=== PATIENT | female | born 1940 | race Caucasian/White ===

== ENCOUNTER 2016-07-03 17:32 | Inpatient (IN) | payer MEDICARE, OTHER ==
[2016-07-03] MEDS ORDERED: IPRATROPIUM/ALBUTEROL 3 ML NEB INH STA (17:58)
[2016-07-03] MEDS ORDERED: IPRATROPIUM/ALBUTEROL 3 ML NEB INH ONE (18:08)
[2016-07-03] MEDS ORDERED: AZITHROMYCIN INJ 500 MG in SODIUM CHLORIDE 0.9% 250 ML IV STA (18:36)
[2016-07-03] MEDS ORDERED: cefTRIAXone 1 GM in SODIUM CHLORIDE 0.9% MINIBAG 100 ML IV STA (18:36)
[2016-07-03] MEDS ORDERED: cefTRIAXone 1 GM VIAL ONE ×2 (18:43→19:06)
[2016-07-03] MEDS ORDERED: SODIUM CHLORIDE FLUSH 0.9% 10 ML SYRINGE IVP PRN (19:48)
[2016-07-03] MEDS ORDERED: LEVALBUTEROL 1.25 MG INH PRN (19:48)
[2016-07-03] MEDS ORDERED: ONDANSETRON 4 MG/2 ML VIAL IVP PRN (19:48)
[2016-07-03] MEDS: SODIUM CHLORIDE FLUSH 0.9% 10 ML SYRINGE IVP SCH (19:58)
[2016-07-03] MEDS ORDERED: NON FORMULARY MED (Lovastatin [Lovastatin] 40 MG) PO SCH (21:00)
[2016-07-03] MEDS: SODIUM CHLORIDE 0.9% 1,000 ML IV SCH (22:38)
[2016-07-04] MEDS: ACETAMINOPHEN 325 MG TABLET PO PRN ×3 (00:30→12:09)
[2016-07-04] MEDS: BENZOCAINE/MENTHOL LOZENGE MM PRN ×2 (04:04→07:07)
[2016-07-04] MEDS: guaiFENesin/CODEINE 5 ML UDC PO PRN ×3 (04:53→16:29)
[2016-07-04] MEDS: LEVOTHYROXINE 88 MCG TABLET PO SCH (07:08)
[2016-07-04] MEDS: BENZONATATE 100 MG CAPSULE PO PRN ×2 (08:11→22:02)
[2016-07-04] MEDS: SODIUM CHLORIDE FLUSH 0.9% 10 ML SYRINGE IVP SCH ×3 (08:12→22:02)
[2016-07-04] MEDS: SACCHAROMYCES BOULARDII 250 MG CAPSULE PO SCH ×2 (08:25→16:29)
[2016-07-04] MEDS: ASPIRIN EC 81 MG TABLET PO SCH (08:25)
[2016-07-04] MEDS: SODIUM CHLORIDE 0.9% 1,000 ML IV SCH (08:32)
[2016-07-04] MEDS: cefTRIAXone 2 GM in SODIUM CHLORIDE 0.9% MINIBAG 100 ML IV SCH (08:40)
[2016-07-04] MEDS: ENOXAPARIN 40 MG/0.4 ML SYRINGE SUBQ SCH (08:40)
[2016-07-04] MEDS: POLYETHYLENE GLYCOL 3350 17 GM PACKET PO SCH (08:41)
[2016-07-04] MEDS: AZITHROMYCIN INJ 500 MG in SODIUM CHLORIDE 0.9% 250 ML IV SCH (09:28)
[2016-07-04] MEDS: NICOTINE 14 MG PATCH TOP SCH (19:20)
[2016-07-04] MEDS: ATORVASTATIN 10 MG TABLET PO SCH (22:02)
[2016-07-05] MEDS: guaiFENesin/CODEINE 5 ML UDC PO PRN ×2 (00:43→17:48)
[2016-07-05] MEDS: OSELTAMIVIR 75 MG CAPSULE PO SCH ×3 (00:43→21:54)
[2016-07-05] MEDS: SODIUM CHLORIDE FLUSH 0.9% 10 ML SYRINGE IVP SCH ×3 (05:06→21:55)
[2016-07-05] MEDS: ACETAMINOPHEN 325 MG TABLET PO PRN ×2 (05:06→15:54)
[2016-07-05] MEDS: BENZONATATE 100 MG CAPSULE PO PRN ×2 (05:06→15:53)
[2016-07-05] MEDS: LEVOTHYROXINE 88 MCG TABLET PO SCH (06:11)
[2016-07-05] MEDS: SACCHAROMYCES BOULARDII 250 MG CAPSULE PO SCH ×2 (08:28→16:23)
[2016-07-05] MEDS: ASPIRIN EC 81 MG TABLET PO SCH (08:29)
[2016-07-05] MEDS: NICOTINE 14 MG PATCH TOP SCH (08:29)
[2016-07-05] MEDS: cefTRIAXone 2 GM in SODIUM CHLORIDE 0.9% MINIBAG 100 ML IV SCH (08:32)
[2016-07-05] MEDS: ENOXAPARIN 40 MG/0.4 ML SYRINGE SUBQ SCH (08:37)
[2016-07-05] MEDS: AZITHROMYCIN INJ 500 MG in SODIUM CHLORIDE 0.9% 250 ML IV SCH (10:12)
[2016-07-05] MEDS: POLYETHYLENE GLYCOL 3350 17 GM PACKET PO SCH (10:13)
[2016-07-05] MEDS ORDERED: LOPERAMIDE 2 MG CAPSULE PO PRN (15:55)
[2016-07-05] MEDS: IPRATROPIUM/ALBUTEROL 3 ML NEB INH PRN (20:10)
[2016-07-05] MEDS: ATORVASTATIN 10 MG TABLET PO SCH (21:54)
[2016-07-06] MEDS: ACETAMINOPHEN 325 MG TABLET PO PRN (04:24)
[2016-07-06] MEDS: CEPHALEXIN 250 MG CAPSULE PO SCH ×3 (06:46→21:15)
[2016-07-06] MEDS: SODIUM CHLORIDE FLUSH 0.9% 10 ML SYRINGE IVP SCH ×3 (06:46→21:15)
[2016-07-06] MEDS: LEVOTHYROXINE 88 MCG TABLET PO SCH (06:46)
[2016-07-06] MEDS: NICOTINE 14 MG PATCH TOP SCH (08:01)
[2016-07-06] MEDS: ASPIRIN EC 81 MG TABLET PO SCH (08:01)
[2016-07-06] MEDS: ENOXAPARIN 40 MG/0.4 ML SYRINGE SUBQ SCH (08:01)
[2016-07-06] MEDS: SACCHAROMYCES BOULARDII 250 MG CAPSULE PO SCH ×2 (08:01→16:55)
[2016-07-06] MEDS: POLYETHYLENE GLYCOL 3350 17 GM PACKET PO SCH (08:02)
[2016-07-06] MEDS: OSELTAMIVIR 75 MG CAPSULE PO SCH ×2 (08:02→21:14)
[2016-07-06] MEDS: guaiFENesin/CODEINE 5 ML UDC PO PRN ×3 (08:02→21:15)
[2016-07-06] MEDS: IPRATROPIUM/ALBUTEROL 3 ML NEB INH PRN (10:35)
[2016-07-06] MEDS: ATORVASTATIN 10 MG TABLET PO SCH (21:15)
[2016-07-07] MEDS: CEPHALEXIN 250 MG CAPSULE PO SCH ×3 (06:53→21:13)
[2016-07-07] MEDS: LEVOTHYROXINE 88 MCG TABLET PO SCH (06:53)
[2016-07-07] MEDS: SODIUM CHLORIDE FLUSH 0.9% 10 ML SYRINGE IVP SCH ×3 (06:53→21:21)
[2016-07-07] MEDS: SACCHAROMYCES BOULARDII 250 MG CAPSULE PO SCH ×2 (09:15→17:45)
[2016-07-07] MEDS: ENOXAPARIN 40 MG/0.4 ML SYRINGE SUBQ SCH (09:15)
[2016-07-07] MEDS: ASPIRIN EC 81 MG TABLET PO SCH (09:15)
[2016-07-07] MEDS: NICOTINE 14 MG PATCH TOP SCH (09:15)
[2016-07-07] MEDS: POLYETHYLENE GLYCOL 3350 17 GM PACKET PO SCH (09:17)
[2016-07-07] MEDS: OSELTAMIVIR 75 MG CAPSULE PO SCH ×2 (09:17→21:13)
[2016-07-07] MEDS: BENZONATATE 100 MG CAPSULE PO PRN (09:28)
[2016-07-07] MEDS: guaiFENesin/CODEINE 5 ML UDC PO PRN (09:29)
[2016-07-07] MEDS: IPRATROPIUM/ALBUTEROL 3 ML NEB INH PRN (10:15)
[2016-07-07] MEDS: methylPREDNISolone SUCCINATE 40 MG/ML VIAL IVP SCH ×2 (13:58→21:12)
[2016-07-07] MEDS ORDERED: SODIUM CHLORIDE INHALATION 3 ML NEB ONE (14:02)
[2016-07-07] MEDS: LEVALBUTEROL 1.25 MG INH SCH ×2 (14:05→22:40)
[2016-07-07] MEDS: BUDESONIDE 0.5 MG/2 ML NEB INH SCH ×2 (14:06→19:10)
[2016-07-07] MEDS: FORMOTEROL FUMARATE NEB 20 MCG/2 ML INH SCH ×2 (14:06→19:10)
[2016-07-07] MEDS: ATORVASTATIN 10 MG TABLET PO SCH (21:13)
[2016-07-07] MEDS: SODIUM CHLORIDE INHALATION 3 ML NEB ONE ×2 (21:14→22:40)
[2016-07-08] MEDS: SODIUM CHLORIDE FLUSH 0.9% 10 ML SYRINGE IVP SCH ×2 (06:09→13:25)
[2016-07-08] MEDS: LEVOTHYROXINE 88 MCG TABLET PO SCH (06:09)
[2016-07-08] MEDS: CEPHALEXIN 250 MG CAPSULE PO SCH ×2 (06:09→13:22)
[2016-07-08] MEDS: methylPREDNISolone SUCCINATE 40 MG/ML VIAL IVP SCH ×2 (06:09→13:24)
[2016-07-08] MEDS: BUDESONIDE 0.5 MG/2 ML NEB INH SCH (07:45)
[2016-07-08] MEDS: FORMOTEROL FUMARATE NEB 20 MCG/2 ML INH SCH (07:45)
[2016-07-08] MEDS: LEVALBUTEROL 1.25 MG INH SCH ×2 (07:45→11:30)
[2016-07-08] MEDS: SACCHAROMYCES BOULARDII 250 MG CAPSULE PO SCH (08:16)
[2016-07-08] MEDS: ASPIRIN EC 81 MG TABLET PO SCH (08:17)
[2016-07-08] MEDS: ENOXAPARIN 40 MG/0.4 ML SYRINGE SUBQ SCH (08:17)
[2016-07-08] MEDS: OSELTAMIVIR 75 MG CAPSULE PO SCH (08:17)
[2016-07-08] MEDS: NICOTINE 14 MG PATCH TOP SCH (08:17)
[2016-07-08] MEDS: BENZONATATE 100 MG CAPSULE PO PRN (08:18)
[2016-07-08] MEDS: guaiFENesin/CODEINE 5 ML UDC PO PRN (08:18)
[2016-07-08] MEDS: POLYETHYLENE GLYCOL 3350 17 GM PACKET PO SCH (09:44)
[2016-07-08] MEDS ORDERED: SODIUM CHLORIDE INHALATION 3 ML NEB ONE ×2 (11:32→14:50)
[2016-07-08] MEDS: IPRATROPIUM/ALBUTEROL 3 ML NEB INH PRN (13:44)
== END 2016-07-08 15:24 | disposition home or self-care (01) | DRG 189 ==
DX: J96.01 Acute respiratory failure with hypoxia (principal); J18.9 Pneumonia, unspecified organism; E78.00 Pure hypercholesterolemia, unspecified; G47.30 Sleep apnea, unspecified; M19.90 Unspecified osteoarthritis, unspecified site; F17.200 Nicotine dependence, unspecified, uncomplicated; R09.02 Hypoxemia; J10.08 Influenza due to other identified influenza virus with other specified pneumonia; J18.1 Lobar pneumonia, unspecified organism; N39.0 Urinary tract infection, site not specified; F17.210 Nicotine dependence, cigarettes, uncomplicated; G47.33 Obstructive sleep apnea (adult) (pediatric); E78.5 Hyperlipidemia, unspecified; E03.9 Hypothyroidism, unspecified; J84.10 Pulmonary fibrosis, unspecified; R91.8 Other nonspecific abnormal finding of lung field; R59.0 Localized enlarged lymph nodes; B96.20 Unspecified Escherichia coli [E. coli] as the cause of diseases classified elsewhere; R19.7 Diarrhea, unspecified; Z79.82 Long term (current) use of aspirin; J43.8 Other emphysema; B33.8 Other specified viral diseases

== ENCOUNTER 2017-01-09 15:51 | Emergency (ER) | payer MEDICARE, OTHER ==
[2017-01-09] MEDS ORDERED: ASPIRIN CHEW 81 MG TABLET PO STA (16:48)
--- NOTE | 2017-01-09 16:50 | ED Physician Documentation ---
PD HPI CHEST PAIN - Stated complaint Stated Complaint: CHEST PX - Chief complaint Chief Complaint: Cardiac - History obtained from History obtained from: Patient, Family (76-year-old woman presents by private vehicle with her 2 daughters. She is a relatively recent diagnosis, about 7 months ago of small cell lung cancer, stage IV, being treated at the [facility]. She developed tight anterior chest pain at rest radiating to the right shoulder but not the back at 1 PM today which has gotten better but not gone away. There is no associated pedal edema or shortness of breath. She never had this before. No history of heart problems.) Review of Systems Ten Systems: 10 systems reviewed and negative Constitutional: denies: Fever, Chills Respiratory: denies: Dyspnea, Cough GI: denies: Abdominal Pain, Nausea, Vomiting PD PAST MEDICAL HISTORY - Past Medical History Cardiovascular: High cholesterol Respiratory: Sleep apnea, CPAP use Neuro: None Endocrine/Autoimmune: HyPOthyroidism GI: None : None HEENT: None Psych: None Musculoskeletal: Osteoarthritis Derm: None - Past Surgical History Past Surgical History: No General: Colonoscopy Ortho: Other - Present Medications Home Medications: Ambulatory Orders Medication Instructions Recorded Confirmed Aspirin [Aspir 81] 81 mg PO DAILY 05/23/14 07/03/16 Garlic 1,000 mg PO DAILY 05/23/14 07/04/16 Lovastatin 40 mg PO QPM 05/23/14 07/03/16 Calcium Carbonate/Vitamin D3 1 tab PO DAILY 07/04/16 07/04/16 [Calcium 600-Vit D3 400 Tablet] Levothyroxine Sodium 75 mcg PO DAILY 07/04/16 07/04/16 Vitamin B Complex 1 tab PO DAILY 07/04/16 07/04/16 Vitamin E (Dl,Tocopheryl Acet) 400 units PO DAILY 07/04/16 07/04/16 [Vitamin E] Acetaminophen [Tylenol] 650 mg PO Q4HR PRN #0 tablet 07/08/16 Budesonide [Pulmicort] 0.5 mg INH RTBID #60 neb 07/08/16 Levalbuterol [Xopenex] 1.25 mg INH TID #90 neb 07/08/16 Levofloxacin [Levaquin] 500 mg PO DAILY #5 tablet 07/08/16 Nicotine 14 mg Patch [Nicoderm] 1 patch TOP DAILY #10 patch 07/08/16 Prednisone 20 mg PO ONCE #5 tablet 07/08/16 Saccharomyces Boulardii [Florastor] 250 mg PO BID #20 capsule 07/08/16 - Allergies Allergies/Adverse Reactions: Allergies Allergy/AdvReac Type Severity Reaction Status Date / Time No Known Drug Allergies Allergy Verified 07/03/16 17:50 - Social History Does the pt smoke?: Yes Smoking Status: Current every day smoker Does the pt drink ETOH?: Yes Does the pt have substance abuse?: No - Immunizations Immunizations are current?: Yes PD ED PE NORMAL - Vitals Vital signs reviewed: Yes - General General: Alert and oriented X 3, No acute distress - HEENT HEENT: PERRL, EOMI - Neck Neck: Supple, no meningeal sign, No bony TTP - Cardiac Cardiac: RRR, No murmur, Strong equal pulses - Respiratory Respiratory: No respiratory distress, Clear bilaterally - Abdomen Abdomen: Non tender - Back Back: No CVA TTP, No spinal TTP - Derm Derm: Normal color, Warm and dry - Extremities Extremities: No edema, No calf tenderness / cord - Neuro Neuro: Alert and oriented X 3, Normal speech - Psych Psych: Normal mood, Normal affect Results - Vitals Vitals: Vital Signs - 24 hr 01/09/17 01/09/17 01/09/17 15:54 16:30 17:30 Temperature 36.1 C L Heart Rate 59 L 88 79 Respiratory 16 16 17 Rate Blood Pressure 175/90 H 144/66 H 149/88 H O2 Saturation 95 98 97 01/09/17 01/09/17 01/09/17 18:26 19:16 19:47 Temperature 36.2 C L Heart Rate 56 L 59 L 65 Respiratory 17 18 17 Rate Blood Pressure 161/90 H 158/72 H 158/72 H O2 Saturation 93 94 95 Oxygen O2 Source [] Room air O2 Source [] Room air O2 Source Room air - EKG (time done) 1605 Rate: Rate (enter#) (55) Rhythm: NSR [place]: RAD Intervals: Normal ME QRS: Normal Ischemia: Normal ST segments Computer interpretation: Agree with computer - Labs Labs: Laboratory Tests 01/09/17 01/09/17 01/09/17 16:54 16:54 16:54 WBC 8.2 RBC 4.26 Hgb 14.2 Hct 42.0 MCV 98.6 MCH 33.3 H MCHC 33.8 RDW 13.6 Plt Count 251 MPV 8.3 Neut # 4.7 Lymph # 2.3 [place] # 1.0 Eos # 0.1 Baso # 0.1 Absolute Nucleated RBC 0.00 Nucleated RBCs 0.0 D-Dimer Sodium 136 Potassium 4.3 Chloride 104 Carbon Dioxide 25 Anion Gap 7.0 BUN 22 H Creatinine 0.9 Estimated GFR (MDRD) 61 L Glucose 108 H Calcium 10.4 H Total Bilirubin 0.5 AST 48 H ALT 28 Alkaline Phosphatase 56 Troponin I 3.65 H* Total Protein 7.2 Albumin 4.0 Globulin 3.2 Albumin/Globulin Ratio 1.3 Lipase 21 L 01/09/17 16:54 WBC RBC Hgb Hct MCV MCH MCHC RDW Plt Count MPV Neut # Lymph # [place] # Eos # Baso # Absolute Nucleated RBC Nucleated RBCs D-Dimer < 200.0 L Sodium Potassium Chloride Carbon Dioxide Anion Gap BUN Creatinine Estimated GFR (MDRD) Glucose Calcium Total Bilirubin AST ALT Alkaline Phosphatase Troponin I Total Protein Albumin Globulin Albumin/Globulin Ratio Lipase - Rads (name of study) 1v chest Radiology: EMP read contemporaneously (COPD, no acute disease) PD MEDICAL DECISION MAKING - ED course ED course: 76-year-old woman with recent diagnosis of small cell lung cancer undergoing treatment presents with just a few hours of fairly typical chest pain but no EKG changes. Workup demonstrates a troponin well above the indeterminate range for TN, negative d-dimer. She was started on a heparin drip, she had received aspirin, beta blockers were held given borderline bradycardia. Spoke with , rodding anode worker the [facility] who also recommends Plavix, and spoke with the ICU attending at the [facility] who accepts in transfer. - Critical Care Time(min): 42 Time Includes: Direct patient care, Review records, Reassess patient, Document care, Coordinate care, Medical consult, Family consult for tx dec Data interpretation: Labs, Pulse ox, CXR Procedures excluded from critical care time: EKG Departure - Departure Disposition: 02 Transfer Acute Care Hosp Clinical Impression: Non-STEMI (non-ST elevated myocardial infarction) Condition: Serious Discharge Date/Time: 01/09/17 19:47
[2017-01-09 17:00] LABS: BASOPHILS # (AUTO) 0.1 10^3/uL (0.0-0.1); BASOPHILS % (AUTO) 0.9 %; EOSINOPHILS # (AUTO) 0.1 10^3/uL (0.0-0.7); EOSINOPHILS % (AUTO) 1.7 %; HGB - HEMOGLOBIN 14.2 g/dL (12.0-16.0); LYMPHOCYTES # (AUTO) 2.3 10^3/uL (1.5-3.5); LYMPHOCYTES % (AUTO) 27.9 %; MEAN CORPUSCULAR HEMOGLOBIN 33.3 pg (27.0-31.0); MEAN CORPUSCULAR HGB CONC 33.8 g/dL (32.0-36.0); MEAN CORPUSCULAR VOLUME 98.6 fL (81.0-99.0); MEAN PLATELET VOLUME 8.3 fL (7.9-10.8); MONOCYTES % (AUTO) 12.7 %; NEUTROPHILS # (AUTO) 4.7 10^3/uL (1.5-6.6); NEUTROPHILS % (AUTO) 56.8 %; RED BLOOD COUNT 4.26 10^6/uL (4.20-5.40); RED CELL DISTRIBUTION WIDTH 13.6 % (12.0-15.0); UNCORRECTED WHITE BLOOD COUNT 8.2 x10^3/uL; WHITE BLOOD COUNT 8.2 x10^3/uL (4.8-10.8)
[2017-01-09] MEDS ORDERED: ASPIRIN CHEW 81 MG TABLET ONE (17:03)
--- NOTE | 2017-01-09 17:03 | XRAY Preliminary Report ---
Exam: XR Chest 1 View IMPRESSION: 1. No radiographically apparent acute abnormality in the chest. No significant change from prior allo wing for differences in technique. 2. COPD. [facility] SITE ID: [id number]
--- NOTE | 2017-01-09 17:05 | XRAY Report ---
EXAM: CHEST RADIOGRAPHY EXAM DATE: 01/09/2017 04:43 PM. CLINICAL HISTORY: Chest pain. COMPARISON: 07/06/2016. TECHNIQUE: 1 view. FINDINGS: Lungs/Pleura: No focal opacities evident. No pleural effusion. No pneumothorax. Hyperinflation as bef ore. Mediastinum: Within exam limitations, cardiomediastinal contour is normal. Aortic atherosclerosis. Other: None. IMPRESSION: 1. No radiographically apparent acute abnormality in the chest. No significant change from prior allo wing for differences in technique. 2. COPD. [facility] Referring Provider Line: [phone] SITE ID: [id number]
[2017-01-09 17:12] LABS: ALBUMIN/GLOBULIN RATIO 1.3 (1.0-2.2); BILIRUBIN,TOTAL 0.5 mg/dL (0.2-1.0); CALCIUM 10.4 mg/dL (8.5-10.3); CREATININE 0.9 mg/dL (0.4-1.0); POTASSIUM 4.3 mmol/L (3.5-5.0); TOTAL PROTEIN 7.2 g/dL (6.7-8.2)
[2017-01-09] MEDS ORDERED: HEPARIN 5,000 UNIT/ML VIAL IVP ONE (17:24)
[2017-01-09] MEDS ORDERED: HEPARIN 25,000 UNITS/500 ML 500 ML IV STA (17:24)
[2017-01-09] MEDS ORDERED: NITROGLYCERIN 2% PASTE TOP STA (17:24)
[2017-01-09] MEDS ORDERED: HEPARIN 5,000 UNIT/ML VIAL ONE (17:32)
[2017-01-09] MEDS ORDERED: NITROGLYCERIN 2% PASTE TOP ONE (17:32)
[2017-01-09] MEDS ORDERED: HEPARIN 25,000 UNITS/500 ML 500 ML IV ONE (17:32)
[2017-01-09] MEDS ORDERED: CLOPIDOGREL 300 MG TABLET PO STA (17:47)
[2017-01-09] MEDS ORDERED: CLOPIDOGREL 300 MG TABLET PO ONE (17:54)
[2017-01-09 19:18] VITALS: BP 158/72
[2017-01-09] MEDS ORDERED: ACETAMINOPHEN 325 MG TABLET PO STA (19:32)
[2017-01-09] MEDS ORDERED: ACETAMINOPHEN 325 MG TABLET PO ONE (19:38)
== END 2017-01-09 19:47 | disposition short-term general hospital (02) ==
LOC: ED 15:51
DX: I21.4 Non-ST elevation (NSTEMI) myocardial infarction (principal); C34.90 Malignant neoplasm of unspecified part of unspecified bronchus or lung; E78.00 Pure hypercholesterolemia, unspecified; G47.30 Sleep apnea, unspecified; E03.9 Hypothyroidism, unspecified; M19.90 Unspecified osteoarthritis, unspecified site; Z79.82 Long term (current) use of aspirin; F17.200 Nicotine dependence, unspecified, uncomplicated
CPT/HCPCS: 36415; 71010; 80053; 83690; 84484; 85025; 85379; 93005; 96365; 96366; 96375; 99284; 99291; A9270

== ENCOUNTER 2017-01-09 19:52 | Outpatient (CLI) | payer MEDICARE, OTHER | END 2017-01-09 19:53 | disposition short-term general hospital (02) | LOC: EMS 19:52 | PROVIDERS: ATTEND Surgery | DX: R07.9 Chest pain, unspecified (principal) | CPT/HCPCS: A0170; A0425; A0426 ==

== ENCOUNTER 2017-01-13 20:10 | Emergency (ER) | payer MEDICARE, OTHER ==
[2017-01-13 22:04] VITALS: BP 125/52
[2017-01-13] MEDS ORDERED: CEPHALEXIN 250 MG CAPSULE PO STA (23:48)
[2017-01-13] MEDS ORDERED: CEPHALEXIN 250 MG CAPSULE PO ONE (23:49)
--- NOTE | 2017-01-13 23:58 | ED Physician Documentation ---
History of Present Illness - Stated complaint Stated Complaint: RT ARM PX - Chief complaint Chief Complaint: General - Additonal information Additional information: hx from pt 76 f recent IV access R AC on experimental cancer tx and also recent CA erythema and swelling R AC at IV site otherwise doing well considering her recent medical events Review of Systems Constitutional: denies: Fever Skin: reports: Rash PD PAST MEDICAL HISTORY - Past Medical History Past Medical History: Yes Cardiovascular: High cholesterol, CA Respiratory: Sleep apnea, CPAP use Neuro: None Endocrine/Autoimmune: HyPOthyroidism GI: None : None HEENT: None Psych: None Musculoskeletal: Osteoarthritis Derm: None - Past Surgical History Past Surgical History: Yes General: Colonoscopy Ortho: Other Cardiovascular: Cardiac catheterization - Present Medications Home Medications: Ambulatory Orders Medication Instructions Recorded Confirmed Aspirin [Aspir 81] 81 mg PO DAILY 05/23/14 07/03/16 Garlic 1,000 mg PO DAILY 05/23/14 07/04/16 Lovastatin 40 mg PO QPM 05/23/14 07/03/16 Calcium Carbonate/Vitamin D3 1 tab PO DAILY 07/04/16 07/04/16 [Calcium 600-Vit D3 400 Tablet] Levothyroxine Sodium 75 mcg PO DAILY 07/04/16 07/04/16 Vitamin B Complex 1 tab PO DAILY 07/04/16 07/04/16 Vitamin E (Dl,Tocopheryl Acet) 400 units PO DAILY 07/04/16 07/04/16 [Vitamin E] Acetaminophen [Tylenol] 650 mg PO Q4HR PRN #0 tablet 07/08/16 Budesonide [Pulmicort] 0.5 mg INH RTBID #60 neb 07/08/16 Levalbuterol [Xopenex] 1.25 mg INH TID #90 neb 07/08/16 Levofloxacin [Levaquin] 500 mg PO DAILY #5 tablet 07/08/16 Nicotine 14 mg Patch [Nicoderm] 1 patch TOP DAILY #10 patch 07/08/16 Prednisone 20 mg PO ONCE #5 tablet 07/08/16 Saccharomyces Boulardii [Florastor] 250 mg PO BID #20 capsule 07/08/16 Cephalexin [Keflex] 500 mg PO Q6H #28 capsule 01/14/17 - Allergies Allergies/Adverse Reactions: Allergies Allergy/AdvReac Type Severity Reaction Status Date / Time No Known Drug Allergies Allergy Verified 07/03/16 17:50 - Social History Does the pt smoke?: Yes Smoking Status: Current every day smoker Does the pt drink ETOH?: Yes Does the pt have substance abuse?: No - Immunizations Immunizations are current?: Yes PD ED PE NORMAL - Vitals Vital signs reviewed: Yes - Cardiac Cardiac: RRR - Respiratory Respiratory: No respiratory distress, Clear bilaterally - Extremities Extremities: Other (erythema and induration to R AC, sspect superficial phelbitis but surrounding erythema looks like developing cellulitis, oerm not otherwise tender or swollen, MSV intact do no suspect DVT) Results - Vitals Vitals: Vital Signs - 24 hr 01/13/17 01/13/17 20:17 22:03 Temperature 36.0 C L 36.5 C Heart Rate 59 L 64 Respiratory 16 16 Rate Blood Pressure 131/65 H 125/52 L O2 Saturation 96 95 Oxygen O2 Source [With Activity] Room air O2 Source [Without Activity] Room air O2 Source Room air Departure - Departure Disposition: 01 Home, Self Care Clinical Impression: Superficial phlebitis Cellulitis Qualifiers: Site of cellulitis: extremity Site of cellulitis of extremity: upper extremity Laterality: right Qualified Code(s): L03.113 - Cellulitis of right upper limb Condition: Good Instructions: ED Infec Skin Cellulitis, ED Phlebitis Superficial Prescriptions: Cephalexin [Keflex] 500 mg PO Q6H #28 capsule Comments: Apply warm compresses for 20 minutes four times a day
== END 2017-01-14 00:13 | disposition home or self-care (01) ==
LOC: ED 20:10
DX: I80.9 Phlebitis and thrombophlebitis of unspecified site (principal); L03.113 Cellulitis of right upper limb; I25.2 Old myocardial infarction; F17.200 Nicotine dependence, unspecified, uncomplicated
CPT/HCPCS: 99283; A9270

== ENCOUNTER 2017-03-01 09:59 | Outpatient (CLI) | payer MEDICARE, OTHER | END 2017-03-01 10:00 | disposition home or self-care (01) | LOC: DI 09:59 | PROVIDERS: ATTEND Internal Medicine | DX: I21.4 Non-ST elevation (NSTEMI) myocardial infarction (principal) | CPT/HCPCS: 93306 ==

== ENCOUNTER 2017-06-21 10:35 | Outpatient (CLI) | payer MEDICARE, OTHER | END 2017-06-21 10:36 | disposition home or self-care (01) | LOC: LAB 10:35 | PROVIDERS: ATTEND Internal Medicine Medical Oncology | DX: C34.11 Malignant neoplasm of upper lobe, right bronchus or lung (principal) | CPT/HCPCS: 36415; 84132 ==

== ENCOUNTER 2017-09-13 16:10 | Outpatient (CLI) | payer MEDICARE, OTHER ==
[2017-09-14 09:49] LABS: BILIRUBIN,URINE NEGATIVE (NEGATIVE); GLUCOSE, URINE (UA) NEGATIVE (NEGATIVE); KETONES,URINE (UA) NEGATIVE (NEGATIVE); LEUKOCYTE ESTERASE, URINE NEGATIVE (NEGATIVE); NITRITE,URINE NEGATIVE (NEGATIVE); OCCULT BLOOD,URINE MODERATE (NEGATIVE); PH,URINE 6.5 PH (5.0-7.5); PROTEIN,URINE TRACE mg/dL (NEGATIVE); UROBILINOGEN,URINE 0.2 (NORMAL) E.U./dL (NORMAL)
[2017-09-14 09:50] LABS: CLARITY,URINE CLEAR (CLEAR)
[2017-09-14 10:03] LABS: BACTERIA,URINE None Seen /HPF (None Seen); CRYSTALS,URINE 0-2 Calcium Oxalate /LPF; RBC,URINE 0-5 /HPF (0-5); SQUAMOUS EPITHELIAL CELL,UR RARE Squamous (<= Few)
== END 2017-09-13 16:11 | disposition home or self-care (01) ==
LOC: LAB 16:10
PROVIDERS: ATTEND Physician Assistant Medical
DX: N39.0 Urinary tract infection, site not specified (principal); C34.11 Malignant neoplasm of upper lobe, right bronchus or lung
CPT/HCPCS: 81001; 87086

== ENCOUNTER 2017-10-13 13:25 | Emergency (ER) | payer MEDICARE, OTHER ==
--- NOTE | 2017-10-13 14:29 | ED Physician Documentation ---
PD HPI BACK PAIN - Stated complaint Stated Complaint: BACK PX - Chief complaint Chief Complaint: Back Pain - History obtained from History obtained from: Patient - History of Present Illness Timing - onset: How many weeks ago (1) Timing - duration: Weeks (she has had pain left chest and back for about a week. Seen in [facility] and Dx with pneumonia. Was in the hospital for a few days and discharged 3 days ago. In the hospital, she was given Tylenol and then IV pain meds for this. Was improving but not Rx any pain meds for home. She is still on Augmentin and Flagyl Abx (there was concern for colitis as well after the initial abx). Finished her prednisone 20 mg daily yesterday. Having pain enough to keep her from sleeping.) Timing - details: Gradual onset, Still present, Waxing and waning Location: Upper (scapular area and around to lateral axillary area.), Left Quality: Pain, Sharp, Aching Associated symptoms: No: Fever, Weakness, Numbness Improves with: Rest. No: Meds (tylenol alone is not helping it) Worsened by: Movement, Other (deep breathing and coughing.) Contributing factors: Other (URI symptoms with pneumonia apparently causing the pain currently.) Similar symptoms before: Diagnosis (pneumonia and pleurisy this past week; no prior to that.) Recently seen: Emergency Dept, Admitted ([facility] for few days for pneumonia, discharged 3 days ago. She came to her daughter's house here on [place] to recuperate.) Review of Systems Constitutional: reports: Myalgias. denies: Fever, Chills Nose: denies: Rhinorrhea / runny nose, Congestion Throat: denies: Sore throat Cardiac: reports: Chest pain / pressure, Pedal edema (the past week since in the hospital; no prior history of edema.). denies: Palpitations, Calf pain Respiratory: reports: Dyspnea, Cough. denies: Wheezing GI: denies: Abdominal Pain, Nausea, Vomiting, Diarrhea, Bloody / black stool : denies: Dysuria, Frequency Musculoskeletal: reports: Back pain. denies: Neck pain Neurologic: reports: Generalized weakness. denies: Focal weakness, Numbness PD PAST MEDICAL HISTORY - Past Medical History Past Medical History: Yes Cardiovascular: High cholesterol, [place] Respiratory: COPD, Sleep apnea, CPAP use, Other (lung cancer and is on med. 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 Did not have spine mets. ) Neuro: None Endocrine/Autoimmune: HyPOthyroidism GI: None : None HEENT: None Psych: None Musculoskeletal: Osteoarthritis Derm: None Other Past Medical History: Lung CA - Past Surgical History Past Surgical History: Yes General: Colonoscopy Ortho: Other Cardiovascular: Cardiac catheterization - Present Medications Home Medications: Ambulatory Orders Medication Instructions Recorded Confirmed Aspirin [Aspir 81] 81 mg PO DAILY 05/23/14 07/03/16 Garlic 1,000 mg PO DAILY 05/23/14 07/04/16 Lovastatin 40 mg PO QPM 05/23/14 07/03/16 Calcium Carbonate/Vitamin D3 1 tab PO DAILY 07/04/16 07/04/16 [Calcium 600-Vit D3 400 Tablet] Levothyroxine Sodium 75 mcg PO DAILY 07/04/16 07/04/16 Vitamin B Complex 1 tab PO DAILY 07/04/16 07/04/16 Vitamin E (Dl,Tocopheryl Acet) 400 units PO DAILY 07/04/16 07/04/16 [Vitamin E] Acetaminophen [Tylenol] 650 mg PO Q4HR PRN #0 tablet 07/08/16 Budesonide [Pulmicort] 0.5 mg INH RTBID #60 neb 07/08/16 Levalbuterol [Xopenex] 1.25 mg INH TID #90 neb 07/08/16 Levofloxacin [Levaquin] 500 mg PO DAILY #5 tablet 07/08/16 Nicotine 14 mg Patch [Nicoderm] 1 patch TOP DAILY #10 patch 07/08/16 Saccharomyces Boulardii [Florastor] 250 mg PO BID #20 capsule 07/08/16 predniSONE [Prednisone] 20 mg PO ONCE #5 tablet 07/08/16 Cephalexin [Keflex] 500 mg PO Q6H #28 capsule 01/14/17 Dexamethasone [Decadron] 4 mg PO DAILY #5 tablet 10/13/17 HYDROcod/ACETAM 5/325 [[place] 5/325] 1 tab PO Q6H PRN #15 tablet 10/13/17 Saccharomyces Boulardii [Florastor] 250 mg PO BID #14 capsule 10/13/17 hydroCHLOROthiazide 25 mg PO DAILY #10 tablet 10/13/17 [Hydrochlorothiazide] - Allergies Allergies/Adverse Reactions: Allergies Allergy/AdvReac Type Severity Reaction Status Date / Time No Known Drug Allergies Allergy Verified 07/03/16 17:50 - Social History Does the pt smoke?: No Smoking Status: Former smoker Does the pt drink ETOH?: Yes Does the pt have substance abuse?: No - Immunizations Immunizations are current?: Yes PD ED PE NORMAL - Vitals Vital signs reviewed: Yes - General General: Alert and oriented X 3, Well developed/nourished - HEENT HEENT: Moist mucous membranes, Pharynx benign - Neck Neck: Supple, no meningeal sign, No adenopathy, No JVD - Cardiac Cardiac: RRR, No murmur - Respiratory Respiratory: No respiratory distress, Clear bilaterally, Other (no chestwall tenderness) - Abdomen Abdomen: Normal bowel sounds, Soft, Non tender, Non distended - Female Female : Deferred - Rectal Rectal: Deferred - Back Back: No CVA TTP - Derm Derm: Normal color, Warm and dry - Extremities Extremities: No tenderness to palpate, Normal ROM s pain, No calf tenderness / cord, Other (1+ edema in both lower legs. no lips nor oral edema. ) - Neuro Neuro: Alert and oriented X 3, No motor deficit, Normal speech - Psych Psych: Normal mood, Normal affect Results - Vitals Vitals: Vital Signs - 24 hr 10/13/17 10/13/17 13:28 16:02 Temperature 36.6 C Heart Rate 66 61 Respiratory 18 20 Rate Blood Pressure 113/64 137/76 H O2 Saturation 92 91 L Oxygen O2 Source [With Activity] Room air O2 Source [Without Activity] Room air O2 Source Room air - Rads (name of study) chest Radiology: Prelim report reviewed, EMP read contemporaneously (small effusions, left more than right. Minimal infiltrate lower left. No PTX. no signs of CHF. ) PD MEDICAL DECISION MAKING - ED course Complexity details: reviewed results (her daughter is pretty up on what was done in the hospital and findings, and the patient had had an MRI of chest just a month ago without mets to spine/bone (prior pelvis one is less). ), considered differential, d/w patient Departure - Departure Disposition: 01 Home, Self Care Clinical Impression: Posterior chest pain, Leg edema Pneumonia Qualifiers: Pneumonia type: due to unspecified organism Laterality: left Lung location: lower lobe of lung Qualified Code(s): J18.1 - Lobar pneumonia, unspecified organism Condition: Stable Record reviewed to determine appropriate education?: Yes Instructions: ED Chest Pain Pleurisy Follow-Up: Cam Nick MD [Primary Care Provider] - Prescriptions: Dexamethasone [Decadron] 4 mg PO DAILY #5 tablet hydroCHLOROthiazide [Hydrochlorothiazide] 25 mg PO DAILY #10 tablet HYDROcod/ACETAM 5/325 [[place] 5/325] 1 tab PO Q6H PRN #15 tablet PRN Reason: Pain Saccharomyces Boulardii [Florastor] 250 mg PO BID #14 capsule Comments: Continue the current antibiotics. Add Florastor (probiotic) twice daily for the next week. Tylenol for pains, and add Hydrocodone as needed for pains (1-2 every 4-6 hours if needed for pains). Decadron steroid daily for 5 more days, for inflammation around the lung. The edema you have in your legs is likely the result of being ill and also having been on steroids (which can cause sodium retention and thus some edema). You can use a mild diuretic daily to help with that (HCTZ). Recheck with your primary care next week as planned. Return sooner if not improving or other symptoms worsening.
[2017-10-13] MEDS ORDERED: DEXAMETHASONE 10 MG/ML VIAL PO STA (14:52)
[2017-10-13] MEDS ORDERED: METHOCARBAMOL 500 MG TABLET PO STA (14:52)
[2017-10-13] MEDS ORDERED: HYDROcod/ACETAM 5/325 MG TABLET PO STA (14:52)
--- NOTE | 2017-10-13 15:24 | XRAY Preliminary Report ---
Exam: XR CHEST 2 VIEW X-RAY IMPRESSION: 1. Left lower lobe opacity suggestive of pneumonia or atelectasis. 2. Small bilateral left greater than right effusions. No pneumothorax. [facility] SITE ID: [id number]
--- NOTE | 2017-10-13 15:27 | XRAY Report ---
EXAM: CHEST RADIOGRAPHY EXAM DATE: 10/13/2017 03:12 PM. CLINICAL HISTORY: Recent pneumonia; left back/chest pain. COMPARISON: 07/06/2016. TECHNIQUE: 2 views. FINDINGS: Lungs/Pleura: Mild blunting of both costophrenic angles worse on the left than on the right. Retrocar diac opacities are noted. No pneumothorax. Additional patchy left upper lobe interstitial densities a re noted. Lungs are hyperinflated most consistent with COPD. Mediastinum: Stable cardiac silhouette. Other: None. IMPRESSION: 1. Left lower lobe opacity suggestive of pneumonia or atelectasis. 2. Small bilateral left greater than right effusions. No pneumothorax. [facility] Referring Provider Line: [phone] SITE ID: [id number]
[2017-10-13] MEDS ORDERED: CHERRY SYRUP 10 ML UDC PO ONE (15:42)
[2017-10-13 16:04] VITALS: BP 137/76
[2017-10-13] MEDS ORDERED: hydroCHLOROthiazide 25 MG TABLET PO STA (16:29)
== END 2017-10-13 17:04 | disposition home or self-care (01) ==
LOC: ED 13:25
DX: J18.9 Pneumonia, unspecified organism (principal); R60.0 Localized edema; R07.89 Other chest pain; C34.90 Malignant neoplasm of unspecified part of unspecified bronchus or lung; Z79.899 Other long term (current) drug therapy; I25.2 Old myocardial infarction; E78.00 Pure hypercholesterolemia, unspecified; J44.9 Chronic obstructive pulmonary disease, unspecified; G47.30 Sleep apnea, unspecified; E03.9 Hypothyroidism, unspecified; Z79.82 Long term (current) use of aspirin; Z87.891 Personal history of nicotine dependence
CPT/HCPCS: 71046; 99283; A9270

== ENCOUNTER 2017-12-04 07:17 | Emergency (ER) | payer MEDICARE, OTHER ==
--- NOTE | 2017-12-04 07:33 | ED Physician Documentation ---
PD HPI CHEST PAIN - Stated complaint Stated Complaint: CP - History obtained from History obtained from: Patient - History of Present Illness Timing - onset: How many days ago (2) Timing - onset during: Rest Timing - duration: Days (2) Timing - details: Gradual onset, Still present, Waxing and waning. No: Intermittant Quality: Aching, Pain Location: Substernal, Right chest Radiation: Neck Improved by: Antacids (briefly better with Tums yesterday, also some improved with NTG last night.). No: Rest Worsened by: Inspiration (somewhat), Position (feels worse lying flat and on right side). No: Exertion Associated symptoms: General Weakness. No: Shortness of air, Nausea, Feeling faint / dizzy, Palpitations, Cough Similar symptoms before: Diagnosis (had NSTEMI a year ago (December 2016) without occlusions of main vessels (patient says had cath at and did not have any stentable lesions - treated medically and without problems after). Had pneumonia a month ago with some chest pains after, pleurisy type. No history of GERD per se.) Recently seen: Clinic (had Power Port placed 3 weeks ago, and has had chemo ( immunotherapy) through it with normal use of it.) Review of Systems Constitutional: denies: Fever, Chills, Myalgias Nose: denies: Rhinorrhea / runny nose, Congestion Throat: denies: Sore throat Cardiac: reports: Chest pain / pressure. denies: Palpitations, Pedal edema, Calf pain Respiratory: denies: Dyspnea, Cough, Hemoptysis, Wheezing GI: denies: Abdominal Pain, Nausea, Vomiting, Diarrhea Skin: denies: Rash, Lesions PD PAST MEDICAL HISTORY - Past Medical History Cardiovascular: High cholesterol, [place] Respiratory: COPD, Sleep apnea, CPAP use, Other (lung cancer and is on med. 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 Did not have spine mets. ) Endocrine/Autoimmune: HyPOthyroidism GI: None : None HEENT: None Psych: None Musculoskeletal: Osteoarthritis Derm: None - Past Surgical History Past Surgical History: Yes General: Colonoscopy Ortho: Other Cardiovascular: Cardiac catheterization - Present Medications Home Medications: Ambulatory Orders Medication Instructions Recorded Confirmed Aspirin [Aspir 81] 81 mg PO DAILY 05/23/14 07/03/16 Garlic 1,000 mg PO DAILY 05/23/14 07/04/16 Lovastatin 40 mg PO QPM 05/23/14 07/03/16 Calcium Carbonate/Vitamin D3 1 tab PO DAILY 07/04/16 07/04/16 [Calcium 600-Vit D3 400 Tablet] Levothyroxine Sodium 75 mcg PO DAILY 07/04/16 07/04/16 Vitamin B Complex 1 tab PO DAILY 07/04/16 07/04/16 Vitamin E (Dl,Tocopheryl Acet) 400 units PO DAILY 07/04/16 07/04/16 [Vitamin E] Acetaminophen [Tylenol] 650 mg PO Q4HR PRN #0 tablet 07/08/16 Budesonide [Pulmicort] 0.5 mg INH RTBID #60 neb 07/08/16 Levalbuterol [Xopenex] 1.25 mg INH TID #90 neb 07/08/16 Levofloxacin [Levaquin] 500 mg PO DAILY #5 tablet 07/08/16 Nicotine 14 mg Patch [Nicoderm] 1 patch TOP DAILY #10 patch 07/08/16 Saccharomyces Boulardii [Florastor] 250 mg PO BID #20 capsule 07/08/16 predniSONE [Prednisone] 20 mg PO ONCE #5 tablet 07/08/16 Cephalexin [Keflex] 500 mg PO Q6H #28 capsule 01/14/17 Dexamethasone [Decadron] 4 mg PO DAILY #5 tablet 10/13/17 HYDROcod/ACETAM 5/325 [[place] 5/325] 1 tab PO Q6H PRN #15 tablet 10/13/17 Saccharomyces Boulardii [Florastor] 250 mg PO BID #14 capsule 10/13/17 hydroCHLOROthiazide 25 mg PO DAILY #10 tablet 10/13/17 [Hydrochlorothiazide] Famotidine [Pepcid] 20 mg PO BID #40 tablet 12/04/17 Lidocaine Viscous 2% [Xylocaine 5 ml PO Q4H PRN #1 bottle 12/04/17 Viscous 2%] - Allergies Allergies/Adverse Reactions: Allergies Allergy/AdvReac Type Severity Reaction Status Date / Time No Known Drug Allergies Allergy Verified 07/03/16 17:50 - Social History Does the pt smoke?: No Smoking Status: Former smoker Does the pt drink ETOH?: Yes Does the pt have substance abuse?: No - Immunizations Immunizations are current?: Yes PD ED PE NORMAL - Vitals Vital signs reviewed: Yes - General General: Alert and oriented X 3, Well developed/nourished, Other (a little anxious abou the pain. Not appearing in distress. ) - HEENT HEENT: Ears normal, Pharynx benign - Neck Neck: Supple, no meningeal sign, No adenopathy - Cardiac Cardiac: RRR, No murmur - Respiratory Respiratory: Clear bilaterally, Other (port placement right chest without redness, swelling, nor tenderness. No chestwall tenderness. ) - Abdomen Abdomen: Normal bowel sounds, Soft, Non tender, Non distended, No organomegaly - Back Back: No CVA TTP - Derm Derm: Normal color, Warm and dry - Extremities Extremities: No deformity, No tenderness to palpate, Normal ROM s pain, No edema , No calf tenderness / cord - Neuro Neuro: Alert and oriented X 3, No motor deficit, Normal speech Results - Vitals Vitals: Vital Signs - 24 hr 12/04/17 11:16 Temperature 37.1 C Heart Rate 77 Respiratory 20 Rate Blood Pressure 108/69 O2 Saturation 89 L Oxygen O2 Source [] Room air O2 Source [] Room air O2 Source Room air - EKG (time done) 07:25 Rate: Rate (enter#) (80) Rhythm: NSR [place]: Normal Intervals: Normal [place] QRS: Normal Ischemia: Normal ST segments. No: ST elevation c/w ischemia (there is hint of elevation inferior but not to call ST elevation per se, and with pain since Tuesday, would defer to getting Troponin and CXR. ), ST depression - Labs Labs: Laboratory Tests 12/04/17 12/04/17 12/04/17 08:43 08:43 08:43 WBC 10.2 RBC 3.36 L Hgb 11.6 L Hct 34.6 L MCV 102.9 H MCH 34.6 H MCHC 33.6 RDW 13.8 Plt Count 207 MPV 9.1 Neut # (Auto) Not Reportable Lymph # (Auto) Not Reportable [place] # (Auto) Not Reportable Eos # (Auto) Not Reportable Baso # (Auto) Not Reportable Absolute Nucleated RBC Not Reportable Total Counted 100 Band Neuts % (Manual) 0 Reactive Lymphs % (Man) 2 Abnorm Lymph % (Manual) 0 Nucleated RBC % Not Reportable Neutrophils # (Manual) 6.9 H Lymphocytes # (Manual) 1.6 Monocytes # (Manual) 1.6 H Eosinophils # (Manual) 0.0 Basophils # (Manual) 0.0 Differential Comment MANUAL DIFFERENTIAL Sodium 130 L Potassium 3.8 Chloride 100 L Carbon Dioxide 22 Anion Gap 8.0 BUN 14 Creatinine 0.7 Estimated GFR (MDRD) 82 L Glucose 123 H Calcium 8.9 Total Bilirubin 0.7 AST 23 ALT 20 Alkaline Phosphatase 72 Total Creatine Kinase 50 Troponin I < 0.04 B-Natriuretic Peptide Total Protein 6.4 L Albumin 3.1 L Globulin 3.3 Albumin/Globulin Ratio 0.9 L Lipase 20 L Urine Color Urine Clarity Urine pH Ur Specific [place] Urine Protein Urine Glucose (UA) Urine Ketones Urine Occult Blood Urine Nitrite Urine Bilirubin Urine Urobilinogen Ur Leukocyte Esterase Urine RBC Urine WBC Ur Squamous Epith Cells Urine Bacteria Ur Microscopic Review Urine Culture Comments 12/04/17 12/04/17 08:43 10:15 WBC RBC Hgb Hct MCV MCH MCHC RDW Plt Count MPV Neut # (Auto) Lymph # (Auto) [place] # (Auto) Eos # (Auto) Baso # (Auto) Absolute Nucleated RBC Total Counted Band Neuts % (Manual) Reactive Lymphs % (Man) Abnorm Lymph % (Manual) Nucleated RBC % Neutrophils # (Manual) Lymphocytes # (Manual) Monocytes # (Manual) Eosinophils # (Manual) Basophils # (Manual) Differential Comment Sodium Potassium Chloride Carbon Dioxide Anion Gap BUN Creatinine Estimated GFR (MDRD) Glucose Calcium Total Bilirubin AST ALT Alkaline Phosphatase Total Creatine Kinase Troponin I B-Natriuretic Peptide 268 H Total Protein Albumin Globulin Albumin/Globulin Ratio Lipase Urine Color YELLOW Urine Clarity HAZY Urine pH 6.0 Ur Specific [place] 1.015 Urine Protein 30 H Urine Glucose (UA) NEGATIVE Urine Ketones NEGATIVE Urine Occult Blood NEGATIVE Urine Nitrite NEGATIVE Urine Bilirubin NEGATIVE Urine Urobilinogen 0.2 (NORMAL) Ur Leukocyte Esterase TRACE H Urine RBC 0-5 Urine WBC 4-5 Ur Squamous Epith Cells MANY Squamous H Urine Bacteria Many H Ur Microscopic Review INDICATED Urine Culture Comments NOT INDICATED PD MEDICAL DECISION MAKING - ED course Complexity details: reviewed results (Labs are looking good. No signs of heart injury. Chest x-ray is clear as well. She did have improvement with a GI cocktail. The combination of findings are suggestive of a GI source of the pain rather than cardiac. We will have her on famotidine and ondansetron and add lidocaine with antacid if needed for pains.), considered differential, d/w patient, d/w family - Sepsis Event Vital Signs: Vital Signs - 24 hr 12/04/17 11:16 Temperature 37.1 C Heart Rate 77 Respiratory 20 Rate Blood Pressure 108/69 O2 Saturation 89 L Oxygen O2 Source [] Room air O2 Source [] Room air O2 Source Room air Departure - Departure Disposition: 01 Home, Self Care Clinical Impression: Chest pain Qualifiers: Chest pain type: precordial pain Qualified Code(s): R07.2 - Precordial pain Gastritis Qualifiers: Gastritis type: unspecified gastritis Chronicity: acute Gastritis bleeding: without bleeding Qualified Code(s): K29.00 - Acute gastritis without bleeding Condition: Stable Record reviewed to determine appropriate education?: Yes Instructions: ED Chest Pain NonCardiac, ED PUD Vs Gastritis Follow-Up: Cam Nick MD [Primary Care Provider] - Prescriptions: Famotidine [Pepcid] 20 mg PO BID #40 tablet Lidocaine Viscous 2% [Xylocaine Viscous 2%] 5 ml PO Q4H PRN #1 bottle PRN Reason: Pain Comments: Your labs and x-ray and cardiogram are normal without showing signs of heart injury or heart failure. No signs of liver or pancreas problems. Your urine test was without signs of infection on the urinalysis. A culture is still pending and will result in a couple of days. You did get improvement in your pain with the stomach medication so I think that is the cause of your pain. We will treat it as gastritis with famotidine twice daily for 2-3 weeks and use antacids such as Tums or Mylanta. You can add lidocaine to that if needed for discomfort. Tylenol if needed for pain. No anti-inflammatories. Continue your other usual medications. Discharge Date/Time: 12/04/17 11:44
[2017-12-04] MEDS ORDERED: MAG HYDROX/AL HYDROX/SIMETH 30 ML UDC PO STA ×2 (07:55→10:21)
[2017-12-04] MEDS ORDERED: LIDOCAINE VISCOUS 2% 15 ML UDC MM STA ×2 (07:55→10:21)
--- NOTE | 2017-12-04 08:39 | XRAY Report ---
EXAM: CHEST RADIOGRAPHY EXAM DATE: 12/04/2017 08:13 AM. CLINICAL HISTORY: Chest pain left sided. COMPARISON: 10/03/2017. TECHNIQUE: 2 views. FINDINGS: Lungs/Pleura: The degree of hyperaeration is stable. Mild basilar atelectasis and scar formation agai n identified. No venecia infiltrate, pleural effusion or pneumothorax. Mediastinum: Stable mediastinal contour. Other: Right sided dianna catheter tip at the cavoatrial junction. IMPRESSION: Stable aeration with hazy basilar opacities and chronic scar formation. No superimposed i nfiltrate. No pneumothorax. [facility] Referring Provider Line: [phone] SITE ID: [id number]
[2017-12-04] MEDS ORDERED: FAMOTIDINE 20 MG TABLET PO STA (09:12)
[2017-12-04 09:35] LABS: BASOPHILS % (AUTO) 0.6 %; EOSINOPHILS % (AUTO) 0.2 %; HGB - HEMOGLOBIN 11.6 g/dL (12.0-16.0); LYMPHOCYTES % (AUTO) 11.5 %; MEAN CORPUSCULAR HEMOGLOBIN 34.6 pg (27.0-31.0); MEAN CORPUSCULAR HGB CONC 33.6 g/dL (32.0-36.0); MEAN CORPUSCULAR VOLUME 102.9 fL (81.0-99.0); MEAN PLATELET VOLUME 9.1 fL (7.9-10.8); NEUTROPHILS % (AUTO) 66.7 %; PLT - PLATELET COUNT 207 10^3/uL (130-450); RED BLOOD COUNT 3.36 10^6/uL (4.20-5.40); RED CELL DISTRIBUTION WIDTH 13.8 % (12.0-15.0); WHITE BLOOD COUNT 10.2 x10^3/uL (4.8-10.8)
[2017-12-04 09:41] LABS: ABNORMAL LYMPHS % (MANUAL) 0 %; BAND NEUTROPHILS % (MANUAL) 0 %
[2017-12-04 09:47] LABS: ALBUMIN 3.1 g/dL (3.2-5.5); ALBUMIN/GLOBULIN RATIO 0.9 (1.0-2.2); BILIRUBIN,TOTAL 0.7 mg/dL (0.2-1.0); CALCIUM 8.9 mg/dL (8.5-10.3); CREATININE 0.7 mg/dL (0.4-1.0); TOTAL PROTEIN 6.4 g/dL (6.7-8.2)
[2017-12-04 10:00] LABS: LYMPHOCYTES # (MANUAL) 1.6 10^3/uL (1.5-3.5); LYMPHOCYTES % (MANUAL) 14 %; MONOCYTES # (MANUAL) 1.6 10^3/uL (0.0-1.0); NEUTROPHILS # (MANUAL) 6.9 10^3/uL (1.5-6.6); NEUTROPHILS % (MANUAL) 68 %
[2017-12-04 10:01] LABS: DIFFERENTIAL COMMENT MANUAL DIFFERENTIAL
[2017-12-04] MEDS ORDERED: SUCRALFATE 1 GM/10 ML UDC PO STA (10:21)
[2017-12-04 10:40] LABS: BILIRUBIN,URINE NEGATIVE (NEGATIVE); GLUCOSE, URINE (UA) NEGATIVE (NEGATIVE); KETONES,URINE (UA) NEGATIVE (NEGATIVE); LEUKOCYTE ESTERASE, URINE TRACE (NEGATIVE); NITRITE,URINE NEGATIVE (NEGATIVE); OCCULT BLOOD,URINE NEGATIVE (NEGATIVE); PROTEIN,URINE 30 mg/dL (NEGATIVE); UROBILINOGEN,URINE 0.2 (NORMAL) E.U./dL (NORMAL)
[2017-12-04 10:43] LABS: CLARITY,URINE HAZY (CLEAR)
[2017-12-04 10:54] LABS: BACTERIA,URINE Many /HPF (None Seen); RBC,URINE 0-5 /HPF (0-5); SQUAMOUS EPITHELIAL CELL,UR MANY Squamous (<= Few)
[2017-12-04 11:16] VITALS: BP 108/69
== END 2017-12-04 11:44 | disposition home or self-care (01) ==
LOC: ED 07:17
DX: R07.2 Precordial pain (principal); K29.00 Acute gastritis without bleeding; R94.31 Abnormal electrocardiogram [ECG] [EKG]; C34.90 Malignant neoplasm of unspecified part of unspecified bronchus or lung; I25.2 Old myocardial infarction; E03.9 Hypothyroidism, unspecified; E78.00 Pure hypercholesterolemia, unspecified; Z79.82 Long term (current) use of aspirin; Z87.891 Personal history of nicotine dependence; Z85.830 Personal history of malignant neoplasm of bone; Z85.05 Personal history of malignant neoplasm of liver
CPT/HCPCS: 36415; 71046; 80053; 81001; 82550; 83690; 83880; 84484; 85025; 93005; 96374; 99283; 99284; A9270; 81003; 87086

== ENCOUNTER 2017-12-07 06:17 | Emergency (ER) | payer MEDICARE, OTHER ==
[2017-12-07 06:49] LABS: BASOPHILS % (AUTO) 0.3 %; EOSINOPHILS % (AUTO) 0.2 %; HGB - HEMOGLOBIN 11.3 g/dL (12.0-16.0); LYMPHOCYTES # (AUTO) 0.8 10^3/uL (1.5-3.5); LYMPHOCYTES % (AUTO) 8.3 %; MEAN CORPUSCULAR HEMOGLOBIN 34.9 pg (27.0-31.0); MEAN CORPUSCULAR VOLUME 102.8 fL (81.0-99.0); MEAN PLATELET VOLUME 8.2 fL (7.9-10.8); MONOCYTES # (AUTO) 1.9 10^3/uL (0.0-1.0); NEUTROPHILS # (AUTO) 7.2 10^3/uL (1.5-6.6); NEUTROPHILS % (AUTO) 72.2 %; PLT - PLATELET COUNT 269 10^3/uL (130-450); RED BLOOD COUNT 3.23 10^6/uL (4.20-5.40); RED CELL DISTRIBUTION WIDTH 14.1 % (12.0-15.0)
[2017-12-07 07:03] LABS: ALBUMIN 2.9 g/dL (3.2-5.5); ALBUMIN/GLOBULIN RATIO 0.7 (1.0-2.2); BILIRUBIN,TOTAL 0.6 mg/dL (0.2-1.0); CALCIUM 8.4 mg/dL (8.5-10.3); CREATININE 0.9 mg/dL (0.4-1.0); MAGNESIUM 1.9 mg/dL (1.7-2.8); PHOSPHORUS 3.4 mg/dL (2.5-4.6); TOTAL PROTEIN 6.8 g/dL (6.7-8.2)
[2017-12-07] MEDS ORDERED: SODIUM CHLORIDE 0.9% 1,000 ML IV ONE (07:05)
[2017-12-07 07:17] LABS: PLATELET ESTIMATE, MANUAL NORMAL (130-450,000) (NORMAL); PLATELET MORPHOLOGY NORMAL APPEARANCE (NORMAL); RBC MORPHOLOGY (MULTIPLE) 1+ MACROCYTOSIS (NORMAL)
--- NOTE | 2017-12-07 07:22 | ED Physician Documentation ---
PD HPI CHEST PAIN - Stated complaint Stated Complaint: CHEST PX - Chief complaint Chief Complaint: Cardiac - History obtained from History obtained from: Patient - History of Present Illness Timing - onset: How many weeks ago (1) Timing - onset during: Rest Timing - duration: Weeks (1) Timing - details: Gradual onset, Still present Quality: Sharp, Pain Location: Left chest Radiation: Back Improved by: Rest Worsened by: Inspiration, Position Associated symptoms: Shortness of air, Cough Similar symptoms before: Diagnosis (pneumonia) Recently seen: Admitted - Additional information Additional information: 77-year-old female with a history of lung cancer with metastases to the bone who is on experimental immunotherapy as developed some chest pain on the left side that is worse when she tries to lay down. She has had something similar to this 2 and half months ago when she was admitted to the hospital for pneumonia and sepsis. She was seen here in the emergency department 2 days ago with this pain that seemed to improve with use of some viscous lidocaine and Mylanta and she was diagnosed with pain related to her GI system and she has not had improvement of the pain with continued treatment. She specifically has worse pain when she tries to lay down. She does know that she has been followed at [facility] for a pericardial effusion. Review of Systems Constitutional: denies: Fever Eyes: denies: Decreased vision Ears: denies: Ear pain Nose: denies: Rhinorrhea / runny nose, Congestion Throat: denies: Sore throat Cardiac: reports: Chest pain / pressure Respiratory: reports: Dyspnea, Cough GI: denies: Abdominal Pain, Nausea, Vomiting : denies: Dysuria, Frequency Skin: denies: Rash Musculoskeletal: denies: Neck pain PD PAST MEDICAL HISTORY - Past Medical History Past Medical History: Yes Cardiovascular: High cholesterol, [place] Respiratory: COPD, Sleep apnea, CPAP use, Other Endocrine/Autoimmune: HyPOthyroidism GI: None : None HEENT: None Psych: None Musculoskeletal: Osteoarthritis Derm: None - Past Surgical History Past Surgical History: Yes General: Colonoscopy Ortho: Other Cardiovascular: Cardiac catheterization - Present Medications Home Medications: Ambulatory Orders Medication Instructions Recorded Confirmed Aspirin [Aspir 81] 81 mg PO DAILY 05/23/14 07/03/16 Lovastatin 40 mg PO QPM 05/23/14 07/03/16 Calcium Carbonate/Vitamin D3 1 tab PO DAILY 07/04/16 07/04/16 [Calcium 600-Vit D3 400 Tablet] Levothyroxine Sodium 75 mcg PO DAILY 07/04/16 07/04/16 Vitamin B Complex 1 tab PO DAILY 07/04/16 07/04/16 Vitamin E (Dl,Tocopheryl Acet) 400 units PO DAILY 07/04/16 07/04/16 [Vitamin E] Acetaminophen [Tylenol] 650 mg PO Q4HR PRN #0 tablet 07/08/16 Budesonide [Pulmicort] 0.5 mg INH RTBID #60 neb 07/08/16 Levalbuterol [Xopenex] 1.25 mg INH TID #90 neb 07/08/16 Famotidine [Pepcid] 20 mg PO BID #40 tablet 12/04/17 Lidocaine Viscous 2% [Xylocaine 5 ml PO Q4H PRN #1 bottle 12/04/17 Viscous 2%] - Allergies Allergies/Adverse Reactions: Allergies Allergy/AdvReac Type Severity Reaction Status Date / Time No Known Drug Allergies Allergy Verified 12/07/17 06:28 - Social History Does the pt smoke?: No Smoking Status: Never smoker Does the pt drink ETOH?: Yes Does the pt have substance abuse?: No - Immunizations Immunizations are current?: Yes - POLST Patient has POLST: No PD ED PE NORMAL - Vitals Vital signs reviewed: Yes (hypoxic ) - General General: Alert and oriented X 3, Well developed/nourished, Other (tachypneic at rest ) - HEENT HEENT: Atraumatic, PERRL, EOMI - Neck Neck: Supple, no meningeal sign - Cardiac Cardiac: RRR, No murmur - Respiratory Respiratory: No respiratory distress, Other (rhonchi bibasilar worse on the left ) - Abdomen Abdomen: Soft, Non tender - Back Back: No CVA TTP, No spinal TTP - Derm Derm: Normal color, Warm and dry, No rash - Extremities Extremities: No deformity, No edema - Neuro Neuro: Alert and oriented X 3, No motor deficit, No sensory deficit, Normal speech Eye Opening: Spontaneous Motor: Obeys Commands Verbal: Oriented GCS Score: 15 - Psych Psych: Normal mood, Normal affect Results - Vitals Vitals: Vital Signs - 24 hr 12/07/17 12/07/17 12/07/17 06:21 06:55 08:10 Temperature 36.8 C Heart Rate 99 89 Respiratory 18 27 H Rate Blood Pressure 108/67 105/71 O2 Saturation 90 L 90 L 90 L 12/07/17 08:20 Temperature Heart Rate 85 Respiratory 28 H Rate Blood Pressure 130/83 H O2 Saturation 96 Oxygen O2 Source [With Activity] Room air O2 Source [Without Activity] Room air O2 Source Nasal cannula - EKG (time done) 0627 Rate: Rate (enter#) (89) Rhythm: NSR [place]: RAD Compare to prior EKG: Changed from prior EKG (SPT 12-04-17 no sig change. ) Computer interpretation: Disagree with computer (I do not see the inferior ST elevation ) - Labs Labs: Laboratory Tests 12/07/17 12/07/17 12/07/17 06:33 06:33 06:33 WBC 10.0 RBC 3.23 L Hgb 11.3 L Hct 33.3 L MCV 102.8 H MCH 34.9 H MCHC 34.0 RDW 14.1 Plt Count 269 MPV 8.2 Neut # (Auto) 7.2 H Lymph # (Auto) 0.8 L [place] # (Auto) 1.9 H Eos # (Auto) 0.0 Baso # (Auto) 0.0 Absolute Nucleated RBC 0.00 Nucleated RBC % 0.0 Manual Slide Review Indicated Platelet Estimate NORMAL (130-450,000) Platelet Morphology NORMAL APPEARANCE RBC Morph Micro Appear 1+ MACROCYTOSIS Sodium 127 L Potassium 3.6 Chloride 97 L Carbon Dioxide 20 L Anion Gap 10.0 BUN 20 Creatinine 0.9 Estimated GFR (MDRD) 61 L Glucose 162 H Calcium 8.4 L Phosphorus 3.4 Magnesium 1.9 Total Bilirubin 0.6 AST 22 ALT 19 Alkaline Phosphatase 88 Troponin I < 0.04 B-Natriuretic Peptide Total Protein 6.8 Albumin 2.9 L Globulin 3.9 Albumin/Globulin Ratio 0.7 L Lipase 18 L 12/07/17 06:33 WBC RBC Hgb Hct MCV MCH MCHC RDW Plt Count MPV Neut # (Auto) Lymph # (Auto) [place] # (Auto) Eos # (Auto) Baso # (Auto) Absolute Nucleated RBC Nucleated RBC % Manual Slide Review Platelet Estimate Platelet Morphology RBC Morph Micro Appear Sodium Potassium Chloride Carbon Dioxide Anion Gap BUN Creatinine Estimated GFR (MDRD) Glucose Calcium Phosphorus Magnesium Total Bilirubin AST ALT Alkaline Phosphatase Troponin I B-Natriuretic Peptide 341 H Total Protein Albumin Globulin Albumin/Globulin Ratio Lipase - Rads (name of study) CT angio chest Radiology: Prelim report reviewed (Impression: No evidence of pulmonary embolus. No thoracic aortic aneurysm. New moderate to large circumferential pericardial effusion mediastinal lymphadenopathy more prominent compared to 07/07. Coronary artery and aortic atherosclerosis.), EMP read indepedently, See rad report 1 veiw chest Radiology: Prelim report reviewed (Impression: 1. New left lower lobe opacity and left pleural effusion. 2. Borderline vascular congestion.), EMP read indepedently, See rad report Procedures - IVC sono (time) 0850 Bedside IVC sono: IVC measures (cm) (2.07), IVC collapsed c insp (cm) (2.07), High CVP PD MEDICAL DECISION MAKING - ED course Complexity details: reviewed old records, reviewed results, re-evaluated patient , considered differential, d/w patient, d/w family ED course: 77-year-old female on experimental immunotherapy for lung cancer has been experiencing some pain in her chest especially if she lays down. She has been seen in the emergency department 2 days ago she states that since that time she has had progression of her symptoms and that the treatment and that her stomach and GI tract did not help with these symptoms. She has developed a cough in the past 2 days as well. She is being cared for at [facility] and is on an experimental protocol. On evaluation here today it appears she has new infiltrate bibasilar on her plain film. She does not have fever or elevated white count but she does have some hypoxia and pain. I contacted the patient's oncologist Dr. Lr at [facility] and he recommends transferring the patient to [facility] for further evaluation and treatment as the differential includes medication induced pneumonitis versus pneumonia. He recomends starting treatment for pneumonia with emperic antibiotic and transfer. - Sepsis Event Vital Signs: Vital Signs - 24 hr 12/07/17 12/07/17 12/07/17 06:21 06:55 08:10 Temperature 36.8 C Heart Rate 99 89 Respiratory 18 27 H Rate Blood Pressure 108/67 105/71 O2 Saturation 90 L 90 L 90 L 12/07/17 08:20 Temperature Heart Rate 85 Respiratory 28 H Rate Blood Pressure 130/83 H O2 Saturation 96 Oxygen O2 Source [With Activity] Room air O2 Source [Without Activity] Room air O2 Source Nasal cannula Departure - Departure Disposition: 02 Transfer Acute Care Hosp Clinical Impression: Pericardial effusion Pneumonia Qualifiers: Pneumonia type: due to unspecified organism Laterality: bilateral Lung location : lower lobe of lung Qualified Code(s): J18.1 - Lobar pneumonia, unspecified organism Condition: Stable
[2017-12-07] MEDS ORDERED: IOPAMIDOL-300 100 ML VIAL ONE (07:25)
--- NOTE | 2017-12-07 07:52 | XRAY Report ---
Procedure Date: 12/07/2017 Accession Number: [id number] / [id number] Procedure: XR - Chest 1 View X-Ray CPT Code: 08535 FULL RESULT: EXAM: CHEST RADIOGRAPHY EXAM DATE: 12/07/2017 07:37 AM. CLINICAL HISTORY: Chest pain. COMPARISON: 12/04/2017. TECHNIQUE: 1 view. FINDINGS: Lungs/Pleura: Vasculature is prominent. Progression of left basilar opacity and left pleural effusion. Right pleural effusion/pleural thickening again seen. No pneumothorax. Mediastinum: Cardiomegaly. Aortic tortuosity. Aortic atherosclerosis. Other: Right IJ portacatheter, unchanged. IMPRESSION: 1. New left lower lobe opacity and left pleural effusion. 2. Borderline vascular congestion. [facility]
--- NOTE | 2017-12-07 08:11 | CT Report ---
Procedure Date: 12/07/2017 Accession Number: [id number] / [id number] Procedure: CT - Chest Angio (PE) CPT Code: FULL RESULT: EXAM: CT ANGIOGRAM CHEST EXAM DATE: 12/07/2017 07:35 AM. CLINICAL HISTORY: Chest pain, hypoxic. COMPARISON: 07/07/2016. 12/07/2017. 12/04/2017. TECHNIQUE: Routine helical imaging was performed through the chest in the pulmonary arterial phase. IV Contrast: ISOVUE 300, 80 mL. Reconstructions: Coronal 3-D MIP reconstructions. Sagittal and coronal. In accordance with CT protocol optimization, one or more of the following dose reduction techniques were utilized for this exam: automated exposure control, adjustment of mA and/or KV based on patient size, or use of iterative reconstructive technique. FINDINGS: Pulmonary Arteries: Diagnostic quality: Adequate through the segmental arteries. No evidence for acute or chronic pulmonary emboli. Maximal size of the mid main pulmonary artery measures 3.5 cm. Lungs/Pleura: Small left pleural effusion. Left lower lobe opacity. Peripheral right upper lung parenchymal opacity and pleural thickening at the site of previous stellate opacity in the right upper lobe findings which may represent residual parenchymal scarring.. Right lower lobe nodule present measuring 4 mm (image 103, series 4) again seen. There is septal thickening typically seen with mild edema. Mediastinum: Moderate to large circumferential pericardial effusion. Small hiatal hernia. No mediastinal hematoma. Coronary artery calcified plaque. Numerous largely subcentimeter mediastinal lymph nodes are seen. An inferior left neck lymph node measures 7 mm, superior mediastinal and paratracheal lymph nodes measure up to 9-10 mm in maximal size, a precarinal lymph node measures up to 9 mm, and the largest is a subcarinal lymph node measuring 13 mm. Thoracic Aorta: No aneurysm. Atherosclerotic calcified plaque. Upper Abdomen: Included portions of the liver, spleen, adrenals, pancreas, and kidneys as well as stomach and colon are unremarkable. Other: Degenerative changes of the thoracic spine. No acute osseous abnormalities. Thoracic scoliosis. IMPRESSION: 1. No evidence of pulmonary embolus. No thoracic aortic aneurysm. 2. New moderate to large circumferential pericardial effusion. 3. Mediastinal lymphadenopathy more prominent compared to 07/07/2016. 4. Coronary artery and aortic atherosclerosis. [facility]
[2017-12-07] MEDS ORDERED: cefTRIAXone 1 GM in SODIUM CHLORIDE 0.9% MINIBAG 100 ML IV STA (09:54)
[2017-12-07] MEDS ORDERED: KETOROLAC 60 MG/2 ML VIAL IVP STA ×2 (09:54→15:51)
[2017-12-07] MEDS ORDERED: IOPAMIDOL-300 100 ML VIAL IVP ONE (10:27)
[2017-12-07 16:47] VITALS: BP 108/69
== END 2017-12-07 16:40 | disposition short-term general hospital (02) ==
LOC: ED 06:17
DX: I31.3 Pericardial effusion (noninflammatory) (principal); J18.9 Pneumonia, unspecified organism; Z85.118 Personal history of other malignant neoplasm of bronchus and lung; C79.51 Secondary malignant neoplasm of bone; Z79.899 Other long term (current) drug therapy; E78.00 Pure hypercholesterolemia, unspecified; I25.2 Old myocardial infarction; J44.9 Chronic obstructive pulmonary disease, unspecified; G47.30 Sleep apnea, unspecified; E03.9 Hypothyroidism, unspecified; M19.90 Unspecified osteoarthritis, unspecified site; Z79.82 Long term (current) use of aspirin
CPT/HCPCS: 36415; 36556; 71045; 71275; 80053; 83690; 83735; 83880; 84100; 84484; 85025; 93005; 96361; 96365; 96375; 96376; 99284; 99285; Q9967

== ENCOUNTER 2018-11-01 19:56 | Emergency (ER) | payer MEDICARE, OTHER ==
--- NOTE | 2018-11-01 20:15 | ED Physician Documentation ---
PD HPI HEENT - Stated complaint Stated Complaint: CONGESTION - Chief complaint Chief Complaint: General - History obtained from History obtained from: Patient - History of Present Illness Timing - onset: How many days ago (4) Timing - duration: Days (4) Timing - details: Gradual onset, Still present (right lateral chest pain just under right breast laterally. Hurts with movement, palpation, and some with breathing. Has had ongoing mild cough. Had chemo of Taxol last week and is having some hoarse voice, nausea, and the right CP. No change with eating, but has had nausea. No edema nor calf pain. She had gotten body CT to eval for tumor load just 3 weeks ago and did not have bony mets, per patient/daughters.), Waxing and waning Location: Other (right chest pain for 4 days.) Improves: Medication (Tylenol every 6 hours.) Worsens: Position, Other (cough, deep breathing, palpation, and trunk movement all hurt some. Movement and palpation the most.) Associated symptoms: Cough. No: Fever, Congestion Recently seen: Clinic (chemo last week (4 days ago) for lung CA (small cell squamous). This was second course of that chemo, Taxol.) Review of Systems Constitutional: denies: Fever, Chills Nose: denies: Rhinorrhea / runny nose, Congestion Throat: denies: Sore throat (but has hoarse voice the past few days.) Cardiac: reports: Chest pain / pressure. denies: Palpitations Respiratory: reports: Dyspnea, Cough. denies: Wheezing GI: denies: Nausea, Vomiting Neurologic: reports: Generalized weakness. denies: Focal weakness, Numbness, Near syncope PD PAST MEDICAL HISTORY - Past Medical History Cardiovascular: High cholesterol, [place] Respiratory: COPD, Sleep apnea, CPAP use, Other Endocrine/Autoimmune: HyPOthyroidism GI: None : None HEENT: None Psych: None Musculoskeletal: Osteoarthritis Derm: None - Past Surgical History Past Surgical History: Yes General: Colonoscopy Ortho: Other Cardiovascular: Cardiac catheterization - Present Medications Home Medications: Ambulatory Orders Medication Instructions Recorded Confirmed Calcium Carbonate/Vitamin D3 1 tab PO DAILY 07/04/16 07/04/16 [Calcium 600-Vit D3 400 Tablet] Levothyroxine Sodium 75 mcg PO DAILY 07/04/16 07/04/16 Acetaminophen [Tylenol] 975 mg PO Q4HR PRN 11/01/18 Albuterol Sulf [Ventolin Hfa 1 - 2 puffs INH Q4HR PRN 11/01/18 11/01/18 Inhaler] Clopidogrel [Plavix] 75 mg PO DAILY 11/01/18 11/01/18 Dexamethasone [Decadron] 4 mg PO DAILY #7 tablet 11/01/18 Hydrocodone/Acetaminophen [[place] 1 each PO Q6H PRN #15 tablet 11/01/18 5-325 Tablet] Losartan [Cozaar] 25 mg PO DAILY 11/01/18 11/01/18 Omeprazole 40 mg PO DAILY 11/01/18 11/01/18 PACLitaxel [Paclitaxel] 6 mg IV 11/01/18 Sertraline [Zoloft] 50 mg PO DAILY 11/01/18 11/01/18 Vitamin B Complex/Folic Acid 0.4 mg PO 11/01/18 [Vitamin B-50 Complex Tablet] - Allergies Allergies/Adverse Reactions: Allergies Allergy/AdvReac Type Severity Reaction Status Date / Time No Known Drug Allergies Allergy Verified 11/01/18 20:06 - Social History Does the pt smoke?: No Smoking Status: Never smoker Does the pt drink ETOH?: Yes Does the pt have substance abuse?: No - Immunizations Immunizations are current?: Yes - POLST Patient has POLST: No PD ED PE NORMAL - Vitals Vital signs reviewed: Yes - General General: Alert and oriented X 3, No acute distress, Well developed/nourished - HEENT HEENT: Moist mucous membranes, Pharynx benign - Neck Neck: Supple, no meningeal sign, No adenopathy - Cardiac Cardiac: RRR, No murmur - Respiratory Respiratory: Clear bilaterally, Other (some chestwall tenderness right laterally, at level of breast. No rash nor sores. Spine itself is not tender. ) - Abdomen Abdomen: Soft, Non tender - Derm Derm: Normal color, Warm and dry - Extremities Extremities: Normal ROM s pain, No edema, No calf tenderness / cord - Neuro Neuro: No motor deficit, No sensory deficit Eye Opening: Spontaneous Motor: Obeys Commands Verbal: Oriented GCS Score: 15 Results - Vitals Vitals: Vital Signs - 24 hr 11/01/18 11/01/18 11/01/18 19:59 20:48 22:29 Temperature 36.5 C 36.8 C Heart Rate 74 76 Respiratory 20 16 16 Rate Blood Pressure 103/50 L 127/73 O2 Saturation 96 93 Oxygen O2 Source [With Activity] Room air O2 Source [Without Activity] Room air O2 Source Room air - Labs Labs: Laboratory Tests 11/01/18 11/01/18 21:12 21:12 WBC 3.1 L RBC 3.48 L Hgb 12.2 Hct 35.6 L MCV 102.2 H MCH 35.0 H MCHC 34.3 RDW 12.9 Plt Count 221 MPV 8.7 Neut # (Auto) 1.3 L Lymph # (Auto) 1.5 [place] # (Auto) 0.1 Eos # (Auto) 0.2 Baso # (Auto) 0.0 Absolute Nucleated RBC 0.00 Nucleated RBC % 0.0 Sodium 138 Potassium 4.1 Chloride 101 Carbon Dioxide 24 Anion Gap 13.0 BUN 31 H Creatinine 1.0 Estimated GFR (MDRD) 54 L Glucose 116 H Calcium 9.9 Magnesium 1.6 L Total Bilirubin 0.4 AST 28 ALT 23 Alkaline Phosphatase 64 Total Creatine Kinase 99 Total Protein 6.1 L Albumin 3.6 Globulin 2.5 Albumin/Globulin Ratio 1.4 Lipase 26 - Rads (name of study) chest xray Radiology: Prelim report reviewed (no acute process), EMP read contemporaneously, See rad report PD MEDICAL DECISION MAKING - ED course Complexity details: reviewed results, re-evaluated patient, considered differential (Right sided chest wall pain that hurts with breathing and movement and some with palpation. She had a CT scan of the body just 3 weeks ago which according to her daughters did not show any obvious bony mets. Will get chest x-ray to look for acute process such as new fluid or effusion.), d/w patient Departure - Departure Disposition: Home, Self Care Clinical Impression: Right-sided chest pain Condition: Stable Record reviewed to determine appropriate education?: Yes Instructions: ED Chest Pain Atypical Unkn Cause Follow-Up: Cam Nick MD [Primary Care Provider] - Prescriptions: Dexamethasone [Decadron] 4 mg PO DAILY #7 tablet Hydrocodone/Acetaminophen [[place] 5-325 Tablet] 1 each PO Q6H PRN #15 tablet PRN Reason: Pain Comments: Your chest x-ray is clear. Your blood count white count is adequate and blood count is good. Your electrolytes are okay. I printed out copies for you. Follow-up with your cancer treatment on Tuesday as planned. I presume the pain is musculoskeletal at this point. Continue usual medications and add Decadron for inflammation daily and Tylenol or hydrocodone as needed for pain. Discharge Date/Time: 11/01/18 22:43
[2018-11-01] MEDS ORDERED: DEXAMETHASONE 10 MG/ML VIAL PO STA (20:58)
[2018-11-01] MEDS ORDERED: HYDROcod/ACETAM 5/325 MG TABLET PO STA (20:58)
[2018-11-01] MEDS ORDERED: CHERRY SYRUP 10 ML UDC PO ONE (20:58)
[2018-11-01 21:20] LABS: BASOPHILS % (AUTO) 1.1 %; EOSINOPHILS # (AUTO) 0.2 10^3/uL (0.0-0.7); HGB - HEMOGLOBIN 12.2 g/dL (12.0-16.0); LYMPHOCYTES # (AUTO) 1.5 10^3/uL (1.5-3.5); LYMPHOCYTES % (AUTO) 49.2 %; MEAN CORPUSCULAR HGB CONC 34.3 g/dL (32.0-36.0); MEAN CORPUSCULAR VOLUME 102.2 fL (81.0-99.0); MEAN PLATELET VOLUME 8.7 fL (7.9-10.8); MONOCYTES # (AUTO) 0.1 10^3/uL (0.0-1.0); MONOCYTES % (AUTO) 2.5 %; NEUTROPHILS # (AUTO) 1.3 10^3/uL (1.5-6.6); NEUTROPHILS % (AUTO) 42.2 %; PLT - PLATELET COUNT 221 10^3/uL (130-450); RED BLOOD COUNT 3.48 10^6/uL (4.20-5.40); RED CELL DISTRIBUTION WIDTH 12.9 % (12.0-15.0); WHITE BLOOD COUNT 3.1 x10^3/uL (4.8-10.8)
[2018-11-01 21:32] LABS: ALBUMIN 3.6 g/dL (3.2-5.5); ALBUMIN/GLOBULIN RATIO 1.4 (1.0-2.2); BILIRUBIN,TOTAL 0.4 mg/dL (0.2-1.0); CALCIUM 9.9 mg/dL (8.5-10.3); MAGNESIUM 1.6 mg/dL (1.7-2.8); TOTAL PROTEIN 6.1 g/dL (6.7-8.2)
--- NOTE | 2018-11-01 21:38 | XRAY Report ---
Reason: dyspnea/right chest pain Procedure Date: 11/01/2018 Accession Number: [id number] / [id number] Procedure: XR - Chest 2 View X-Ray CPT Code: 33567 FULL RESULT: EXAM: CHEST RADIOGRAPHY EXAM DATE: 11/01/2018 09:21 PM. CLINICAL HISTORY: Dyspnea/right chest pain. On chemotherapy. COMPARISON: CHEST 1 VIEW 12/07/2017 7:33 AM. TECHNIQUE: 2 views. FINDINGS: Lungs/Pleura: No focal opacities evident. No pleural effusion. No pneumothorax. Normal volumes. Mediastinum: Heart and mediastinal contours are unremarkable. Minimal aortic arch calcification. Right IJ Port-A-Cath in the mid SVC, as before. Other: Mild generalized thoracic kyphosis. Minimal multilevel lower thoracic degenerative disk disease. IMPRESSION: No evidence of active cardiopulmonary disease. RADIA
[2018-11-01] MEDS ORDERED: HYDROcod/ACET 5/325 Prepack 4 PO STA (22:27)
[2018-11-01 22:30] VITALS: BP 127/73
== END 2018-11-01 22:43 | disposition home or self-care (01) ==
LOC: ED 19:56
DX: R07.9 Chest pain, unspecified (principal); C34.90 Malignant neoplasm of unspecified part of unspecified bronchus or lung; J44.9 Chronic obstructive pulmonary disease, unspecified
CPT/HCPCS: 36415; 71046; 80053; 82550; 83690; 83735; 85025; 99283; A9270

== ENCOUNTER 2018-11-07 15:39 | Inpatient (IN) | payer MEDICARE, OTHER ==
[~2018-11-07 15:39] MED LIST: IOVERSOL 320 100 ML VIAL IVP ONE
--- NOTE | 2018-11-07 16:10 | ED Physician Documentation ---
History of Present Illness - Stated complaint Stated Complaint: SHIVERING,WEAK,PAIN IN CHEST AREA - Chief complaint Chief Complaint: General - History obtained from History obtained from: Patient, Family - History of Present Illness Pain level max: 8 Pain level now: 3 - Additonal information Additional information: 78 year old female with small cell lung CA. states dyspnea, weakness and shaking today. Had chemotherapy 4 days ago and has felt unwell since that time. Yesterday developed a cough with 3/10 chest pain. No fevers that she is aware of. Worse with movement, better with rest. Took oxycodone which helped her chest pain. Chest pain is with coughing. Review of Systems Ten Systems: 10 systems reviewed and negative Constitutional: reports: Chills. denies: Fever Cardiac: denies: Palpitations Respiratory: denies: Wheezing GI: denies: Vomiting, Diarrhea Skin: denies: Rash Musculoskeletal: denies: Neck pain, Back pain Neurologic: denies: Headache PD PAST MEDICAL HISTORY - Past Medical History Cardiovascular: High cholesterol, [place] Respiratory: COPD, Sleep apnea, CPAP use, Other Endocrine/Autoimmune: HyPOthyroidism GI: None : None HEENT: None Psych: None Musculoskeletal: Osteoarthritis Derm: None - Past Surgical History Past Surgical History: Yes General: Colonoscopy Ortho: Other Cardiovascular: Cardiac catheterization - Present Medications Home Medications: Ambulatory Orders Medication Instructions Recorded Confirmed Calcium Carbonate/Vitamin D3 1 tab PO DAILY 07/04/16 11/07/18 [Calcium 600-Vit D3 400 Tablet] Levothyroxine Sodium 75 mcg PO DAILY 07/04/16 11/07/18 Albuterol Sulf [Ventolin Hfa 2 puffs INH Q4HR PRN 11/01/18 11/07/18 Inhaler] Clopidogrel [Plavix] 75 mg PO DAILY 11/01/18 11/07/18 Losartan [Cozaar] 25 mg PO DAILY 11/01/18 11/07/18 Sertraline [Zoloft] 50 mg PO DAILY 11/01/18 11/07/18 Dexamethasone [Decadron] 4 mg PO [id number] 11/07/18 11/07/18 Famotidine 20 mg PO DAILY PRN 11/07/18 11/07/18 Fluticasone/Salmeterol [Advair Hfa 1 puffs INH BID 11/07/18 11/07/18 115-21 Mcg Inhaler] Rosuvastatin Calcium 20 mg PO DAILY 11/07/18 11/07/18 Vitamin B Complex 1 tab PO DAILY 11/07/18 11/07/18 - Allergies Allergies/Adverse Reactions: Allergies Allergy/AdvReac Type Severity Reaction Status Date / Time No Known Drug Allergies Allergy Verified 11/07/18 15:47 - Social History Does the pt smoke?: No Smoking Status: Never smoker Does the pt drink ETOH?: Yes Does the pt have substance abuse?: No - Immunizations Immunizations are current?: Yes - POLST Patient has POLST: No PD ED PE NORMAL - Vitals Vital signs reviewed: Yes - General General: Alert and oriented X 3, No acute distress, Well developed/nourished - HEENT HEENT: PERRL, Moist mucous membranes - Neck Neck: Supple, no meningeal sign - Cardiac Cardiac: RRR, Strong equal pulses - Respiratory Respiratory: No respiratory distress, Clear bilaterally - Abdomen Abdomen: Soft, Non tender, Non distended - Derm Derm: Warm and dry - Extremities Extremities: No edema - Neuro Neuro: Alert and oriented X 3 - Psych Psych: Normal mood, Normal affect Results - Vitals Vitals: Vital Signs - 24 hr 11/07/18 11/07/18 11/07/18 15:43 16:00 16:19 Temperature 36.2 C L Heart Rate 91 78 Respiratory 26 H 18 Rate Blood Pressure 151/81 H 144/61 H O2 Saturation 90 L 88 L 96 11/07/18 11/07/18 11/07/18 17:00 17:30 17:41 Temperature 37.5 C Heart Rate 85 81 83 Respiratory 37 H 24 24 Rate Blood Pressure 157/72 H 156/90 H O2 Saturation 98 98 Oxygen O2 Source [With Activity] Room air O2 Source [Without Activity] Room air O2 Source Oxymask - Labs Labs: Laboratory Tests 11/07/18 11/07/18 11/07/18 16:10 16:10 16:10 WBC 1.2 L* RBC 3.33 L Hgb 11.4 L Hct 33.9 L MCV 101.6 H MCH 34.3 H MCHC 33.7 RDW 13.5 Plt Count 229 MPV 8.8 Neut # (Auto) Not Reportable Lymph # (Auto) Not Reportable [place] # (Auto) Not Reportable Eos # (Auto) Not Reportable Baso # (Auto) Not Reportable Absolute Nucleated RBC Not Reportable Total Counted 100 Band Neuts % (Manual) 3 Abnorm Lymph % (Manual) 0 Nucleated RBC % Not Reportable Neutrophils # (Manual) 0.6 L Lymphocytes # (Manual) 0.5 L Monocytes # (Manual) 0.0 Eosinophils # (Manual) 0.0 Basophils # (Manual) 0.0 Differential Comment MANUAL DIFFERENTIAL WBC Morphology NORMAL APPEARANCE Platelet Estimate NORMAL (130-450,000) Platelet Morphology NORMAL APPEARANCE RBC Morph Micro Appear NORMAL APPEARANCE Sodium 133 L Potassium 4.0 Chloride 100 L Carbon Dioxide 24 Anion Gap 9.0 BUN 19 Creatinine 0.8 Estimated GFR (MDRD) 70 L Glucose 120 H Lactic Acid Calcium 9.5 Total Bilirubin 0.4 AST 23 ALT 20 Alkaline Phosphatase 64 Troponin I < 0.04 B-Natriuretic Peptide Total Protein 6.0 L Albumin 3.7 Globulin 2.3 Albumin/Globulin Ratio 1.6 Lipase 25 Urine Color Urine Clarity Urine pH Ur Specific [place] Urine Protein Urine Glucose (UA) Urine Ketones Urine Occult Blood Urine Nitrite Urine Bilirubin Urine Urobilinogen Ur Leukocyte Esterase Ur Microscopic Review Urine Culture Comments 11/07/18 11/07/18 11/07/18 16:10 16:10 16:57 WBC RBC Hgb Hct MCV MCH MCHC RDW Plt Count MPV Neut # (Auto) Lymph # (Auto) [place] # (Auto) Eos # (Auto) Baso # (Auto) Absolute Nucleated RBC Total Counted Band Neuts % (Manual) Abnorm Lymph % (Manual) Nucleated RBC % Neutrophils # (Manual) Lymphocytes # (Manual) Monocytes # (Manual) Eosinophils # (Manual) Basophils # (Manual) Differential Comment WBC Morphology Platelet Estimate Platelet Morphology RBC Morph Micro Appear Sodium Potassium Chloride Carbon Dioxide Anion Gap BUN Creatinine Estimated GFR (MDRD) Glucose Lactic Acid 1.0 Calcium Total Bilirubin AST ALT Alkaline Phosphatase Troponin I B-Natriuretic Peptide 53 Total Protein Albumin Globulin Albumin/Globulin Ratio Lipase Urine Color YELLOW Urine Clarity CLEAR Urine pH 5.5 Ur Specific [place] 1.010 Urine Protein NEGATIVE Urine Glucose (UA) NEGATIVE Urine Ketones NEGATIVE Urine Occult Blood TRACE-INTA Urine Nitrite NEGATIVE Urine Bilirubin NEGATIVE Urine Urobilinogen 0.2 (NORMAL) Ur Leukocyte Esterase NEGATIVE Ur Microscopic Review NOT INDICATED Urine Culture Comments NOT INDICATED - Rads (name of study) ct chest Radiology: Prelim report reviewed, EMP read contemporaneously, See rad report (No pulmonary emboli. 2. Infiltrate right upper lobe inferiorly. Infiltrate right lower lobe superiorly. 3. Increasing mediastinal adenopathy. 3. Other chronic parenchymal findings similar to previous detailed above. ) PD MEDICAL DECISION MAKING - ED course Complexity details: reviewed results, re-evaluated patient, considered differential, d/w patient, d/w family, d/w automobile sales consultant ED course: 78-year-old female with right upper and right lower lobe pneumonia. Hypoxic. Requiring supplemental oxygen. Given cefepime 2 g IV. She is neutropenic as well. Discussed the case with Dr. Razo, hospitalist who accepts. Lactate is normal. This document was made in part using voice recognition software. While efforts are made to proofread this document, sound alike and grammatical errors may occur. Departure - Departure Disposition: 66 [facility] DC/Xfer Clinical Impression: Hypoxia Pneumonia Qualifiers: Pneumonia type: due to unspecified organism Laterality: right Lung location: unspecified part of lung Qualified Code(s): J18.9 - Pneumonia, unspecified organism Neutropenia Qualifiers: Neutropenia type: unspecified Qualified Code(s): D70.9 - Neutropenia, unspecified Condition: Stable Discharge Date/Time: 11/07/18 19:07
[2018-11-07 16:18] LABS: BASOPHILS % (AUTO) 0.5 %; HGB - HEMOGLOBIN 11.4 g/dL (12.0-16.0); MEAN CORPUSCULAR HEMOGLOBIN 34.3 pg (27.0-31.0); MEAN CORPUSCULAR HGB CONC 33.7 g/dL (32.0-36.0); MEAN CORPUSCULAR VOLUME 101.6 fL (81.0-99.0); MEAN PLATELET VOLUME 8.8 fL (7.9-10.8); MONOCYTES % (AUTO) 4.9 %; NEUTROPHILS % (AUTO) 49.6 %; PLT - PLATELET COUNT 229 10^3/uL (130-450); RED BLOOD COUNT 3.33 10^6/uL (4.20-5.40); RED CELL DISTRIBUTION WIDTH 13.5 % (12.0-15.0)
[2018-11-07 16:21] LABS: WHITE BLOOD COUNT 1.2 x10^3/uL (4.8-10.8)
[2018-11-07 16:22] LABS: ABNORMAL LYMPHS % (MANUAL) 0 %
[2018-11-07] MEDS ORDERED: IOVERSOL 320 100 ML VIAL IVP ONE ×2 (16:24→16:58)
[2018-11-07] MEDS ORDERED: SODIUM CHLORIDE 0.9% 1,000 ML IV ONE ×2 (16:27)
[2018-11-07 16:30] LABS: ALBUMIN 3.7 g/dL (3.2-5.5); ALBUMIN/GLOBULIN RATIO 1.6 (1.0-2.2); BILIRUBIN,TOTAL 0.4 mg/dL (0.2-1.0); CALCIUM 9.5 mg/dL (8.5-10.3); CREATININE 0.8 mg/dL (0.4-1.0)
[2018-11-07 16:38] LABS: BAND NEUTROPHILS % (MANUAL) 3 %; DIFFERENTIAL COMMENT MANUAL DIFFERENTIAL; LYMPHOCYTES # (MANUAL) 0.5 10^3/uL (1.5-3.5); LYMPHOCYTES % (MANUAL) 43 %; NEUTROPHILS # (MANUAL) 0.6 10^3/uL (1.5-6.6); NEUTROPHILS % (MANUAL) 49 %; PLATELET ESTIMATE, MANUAL NORMAL (130-450,000) (NORMAL); PLATELET MORPHOLOGY NORMAL APPEARANCE (NORMAL); RBC MORPHOLOGY (MULTIPLE) NORMAL APPEARANCE (NORMAL)
[2018-11-07 17:08] LABS: BILIRUBIN,URINE NEGATIVE (NEGATIVE); GLUCOSE, URINE (UA) NEGATIVE (NEGATIVE); KETONES,URINE (UA) NEGATIVE (NEGATIVE); LEUKOCYTE ESTERASE, URINE NEGATIVE (NEGATIVE); NITRITE,URINE NEGATIVE (NEGATIVE); OCCULT BLOOD,URINE TRACE-INTA (NEGATIVE); PH,URINE 5.5 PH (5.0-7.5); PROTEIN,URINE NEGATIVE (NEGATIVE); UROBILINOGEN,URINE 0.2 (NORMAL) E.U./dL (NORMAL)
[2018-11-07] MEDS ORDERED: IPRATROPIUM/ALBUTEROL 3 ML NEB INH STA (17:09)
[2018-11-07 17:10] LABS: CLARITY,URINE CLEAR (CLEAR)
--- NOTE | 2018-11-07 17:23 | CT Report ---
Reason: pleuritic chest pain, cough Procedure Date: 11/07/2018 Accession Number: [id number] / [id number] Procedure: CT - ANGIO CHEST W/WO CPT Code: FULL RESULT: EXAM: CT ANGIOGRAM CHEST EXAM DATE: 11/07/2018 04:41 PM. CLINICAL HISTORY: Pleuritic chest pain, cough. COMPARISON: CHEST ANGIO 12/07/2017 7:29 AM. TECHNIQUE: Routine helical imaging was performed through the chest in the pulmonary arterial phase. IV Contrast: CE. Reconstructions: Coronal 3-D MIP reconstructions.Sagittal and coronal. In accordance with CT protocol optimization, one or more of the following dose reduction techniques were utilized for this exam: automated exposure control, adjustment of mA and/or KV based on patient size, or use of iterative reconstructive technique. FINDINGS: Pulmonary Arteries: Diagnostic quality: Adequate through the segmental arteries. No evidence for acute or chronic pulmonary emboli. RV/LV is within normal limits. There is no interventricular septal bowing. There is no reflux of contrast material in the IVC. Lungs/Pleura: Right upper lobe infiltrate. Infiltrate right lower lobe superior, anterior segment. Peripheral right upper lobe parenchymal opacity, pleural thickening similar. 4 mm right lower lobe posterior segment nodule (5, 90 stable. Right middle lobe, lingular and Bilateral lower lobe areas of atelectasis/scarring. Biapical scarring. No effusion Mediastinum: Mediastinal lymph nodes persist Right precarinal 1.9 cm lymph node is larger. Subcarinal 1.5 cm lymph node. Right hilar lymph node. No pericardial effusion . Coronary artery calcifications. Thoracic Aorta: Unremarkable. Upper Abdomen: Unremarkable. Other: None. IMPRESSION: 1. No pulmonary emboli. 2. Infiltrate right upper lobe inferiorly. Infiltrate right lower lobe superiorly. 3. Increasing mediastinal adenopathy. 3. Other chronic parenchymal findings similar to previous detailed above. RADIA
[2018-11-07] MEDS ORDERED: CEFEPIME 2 GM in SODIUM CHLORIDE 0.9% MINIBAG 100 ML IV STA (17:31)
--- NOTE | 2018-11-07 18:16 | HISTORY & PHYSICAL EXAMINATION ---
Chief Complaint - Chief Complaint Chief Complaint: shortness of breath, rigors, weakness History of Present Illness - Admitted From Admitted From:: ED - History Obtained From Records Reviewed: yes History obtained from: chart review, patient, family Exam Limitations: AMS - History of Present Illness HPI Comment/Other: Rhina Brady is a 78-year old female with a past medical history of hypertension, hyperlipidemia, myocardial infarction, COPD, FLAVIA- on CPAP, small cell lung cancer, hypothyroidism, osteoarthritis, depression and anxiety. The patient [facility]. She last had a treatment 4 days ago and has a established right upper chest port. Yesterday she developed increased shortness of breath, weakness, and rigors. She reported fevers, chills, loss of appetite, and slight nausea on my exam at home. She developed chest pain early this morning, so came to the ED after taking oxycodone with no improvement. Labs show a low WBC count of 1.2, H/H of 11.4/33.9, elevated MCV of 101.6, platelets of 229, unknown neutrophil count, sodium of 133, potassium of 4.0, chloride 100, BUN 19, creatinine of 0.8, GFR of 70, glucose of 120, troponin of 0.04, bili 0.4, lactic acid 1.0, BNP 53, a urine sample that appears non-infectious. Imaging of a chest CT shows no pulmonary emboli, right upper & lower lobe infiltrates, increased mediastinal adenopathy. Vital signs show no fever with a temp of 36.2, heart rate 91, RR 26, B/P 151/81, oxygen 88% on 4L nasal cannula that was changed to a mask. On her initial exam, she has signs of poor perfusion on all extremities with early mottling, silvana cheeks, is minimally conversational, and is requiring high amounts of oxygen at 12L venti-mask, speaking in few word sentences. Her daughter is at her bedside. She will be admitted for worrisome evidence of possible a progression to septic shock given her neutropenia and clinical exam findings. 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 DIRECTOR: reports: None : reports: None HEENT: reports: None, Chronic sinusitis, Chronic hearing loss Psych: reports: Depression, Anxiety Musculoskeletal: reports: Osteoarthritis Derm: reports: None MRSA Hx?: No Other Past Medical History: small cell lung CA - Past Surgical History General: reports: Colonoscopy Ortho: reports: Other Cardiovascular: reports: Coronary stent, Cardiac catheterization, Angioplasty - Family & Social History Family History: Mother: , Father: Living arrangement: At home Living Situation: Alone Social History Notes: Patient has a home in [place], [place] and one on [facility]. She drives a car, and manages her life on her own. She is close to her 5 daughters and one son. She lost her a few years ago. 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 She first was diagnosed with her lung cancer in 2017, which has changed the quality of her life. She denies the use of illicit drugs, but recently has been using CBD oils for symptoms. She denies alcoholism, and was a life long smoker- quit in 2017. She wishes to be a FULL code. - Substance History Use: Uses substance without health or social issues: NONE, Tobacco Abuse: Recurrent use of substance despite neg consequences: NONE Dependence: Experiences withdrawal or developed tolerances: NONE - POLST Patient has POLST: No POLST Status: Full Code Meds/Allgy - Home Medications Home Medications: Ambulatory Orders Medication Instructions Recorded Confirmed Calcium Carbonate/Vitamin D3 1 tab PO DAILY 07/04/16 11/07/18 [Calcium 600-Vit D3 400 Tablet] Levothyroxine Sodium 75 mcg PO DAILY 07/04/16 11/07/18 Albuterol Sulf [Ventolin Hfa 2 puffs INH Q4HR PRN 11/01/18 11/07/18 Inhaler] Clopidogrel [Plavix] 75 mg PO DAILY 11/01/18 11/07/18 Losartan [Cozaar] 25 mg PO DAILY 11/01/18 11/07/18 Sertraline [Zoloft] 50 mg PO DAILY 11/01/18 11/07/18 Dexamethasone [Decadron] 4 mg PO [id number] 11/07/18 11/07/18 Famotidine 20 mg PO DAILY PRN 11/07/18 11/07/18 Fluticasone/Salmeterol [Advair Hfa 1 puffs INH BID 11/07/18 11/07/18 115-21 Mcg Inhaler] Rosuvastatin Calcium 20 mg PO DAILY 11/07/18 11/07/18 Vitamin B Complex 1 tab PO DAILY 11/07/18 11/07/18 - Allergies Allergies/Adverse Reactions: Allergies Allergy/AdvReac Type Severity Reaction Status Date / Time No Known Drug Allergies Allergy Verified 11/07/18 15:47 Review of Systems - Constitutional Constitutional: reports: Fatigue, Fever, Chills, Malaise, Weakness, Poor appetite, Night sweats - Eyes Eyes: reports: Vision loss - Ears, Nose & Throat Ears, Nose & Throat: reports: Ear pain (left), Tinnitus, Postnasal drainage, Hoarseness - Cardiovascular Cariovascular: reports: Chest pain, Edema, Lightheadedness, Decr. exercise tolerance - Respiratory Respiratory: reports: Cough, Wheezing, SOB with exertion - Gastrointestinal Gastrointestinal: reports: Abdominal distention, Nausea, Reflux/heartburn, Bloating, Poor appetite - Genitourinary Genitourinary: reports: Dysuria, Nocturia - Musculoskeletal Musculoskeletal: reports: Muscle aches - Integumentary Integumentary: reports: Dryness - Neurological Neurological: reports: General weakness - Psychiatric Psychiatric: reports: Depression, Anxiety - Hematologic/Lymphatic Hematologic/Lymphatic: reports: Anemia, Recurrent infections - All Other Systems All Other Systems: reports: Reviewed and negative Prior Level of Functionality: independent Exam - Vital Signs Reviewed Vital Signs: Yes Vital Signs: Vital Signs x48h Temp Pulse Resp BP Pulse Ox 11/07/18 17:41 83 24 156/90 H 98 11/07/18 17:30 81 24 11/07/18 17:00 37.5 C 85 37 H 157/72 H 98 11/07/18 16:19 78 18 144/61 H 96 11/07/18 16:00 88 L 11/07/18 15:43 36.2 C L 91 26 H 151/81 H 90 L - Physical Exam General Appearance: positive: Alert, Moderate distress, Anxious, Lethargic Eyes Bilateral: positive: PERRL ENT: positive: Pharynx nml, Dry mucous membranes, Other (impacted cerumen) Neck: positive: Thyroid nml, No JVD, Lymphadenopathy (R), Lymphadenopathy (L) Respiratory: positive: Chest non-tender, Rhonchi Cardiovascular: positive: Regular rate & rhythm, Tachycardia, Systolic murmur, Decreased pulse(s) Peripheral Pulses: positive: 2+ Abdomen: positive: Non-tender, Nml bowel sounds, Hepatomegaly, Other (rounded, soft) Back: positive: Nml inspection Skin: positive: No rash, Warm, Dry, Cyanosis (mottling over all extremities, chest), Pallor Extremities: positive: Non-tender, Pedal edema Neurologic/Psychiatric: positive: CN's nml (2-12), Disoriented to time, Weakness, Sensory loss, Slurred/abnml speech, Depressed mood/affect Reflexes: Bicep (R): 2+, Bicep (L): 2+ Sepsis Event Note (H) - Evaluation Current Stage of Sepsis: Sepsis Possible source of Sepsis: positive: Pulmonary - Sepsis Criteria Sepsis Criteria: WBC count greater than 12,000 or less than 4000, [employer]: altered consciousness (unrelated to primary neuro pathology) Conclusion/Plan - Problem List (1) Neutropenic fever Conclusion/Plan: - Once arriving on the nursing floor, a charted temp of 39 C orally was noted - Calculated ANC was 43.2 cells/microL Plan: Add influenza, MRSA swabs, continue cefepime from ED, add vanco per pharmacy (2) Right lower lobe pneumonia Conclusion/Plan: - Current diagnosis with right upper and lower lobe pneumonia - Neutropenic, calculated ANC 43.2 - Fever charted at 39 C orally per chart, fevers reported at home - Requiring high level of oxygen at 4-8L nasal cannula verses venti-mask - Duo nebs as needed and QID - Started on Cefepime in the ED, added vanco per pharmacy Plan: Continue cefepime/vanco, recheck lactic acid at 2200, continue respiratory care (3) Acute metabolic encephalopathy Conclusion/Plan: - Per family, the patient is typically clear minded - Has a home in [place], [place] and here on [facility] and usually manages on her own, drives a car up until this event - On exam, she displays evidence of poor historian Plan: Continue to monitor (4) Acute hypoxemic respiratory failure Conclusion/Plan: - Is not dependent on oxygen, wears a CPAP at night - Was only 88% on 4L nasal cannula Plan: Continue with duo-nebs, consider IV steroids (5) Small cell lung cancer Conclusion/Plan: - [facility] [place] - Presumed prescribed a medication called Paclitaxel - Has an established right upper chest port that appears to be in good order and without s/s of infection Plan: continue to treat acute illness, contact primary oncologist if needed (6) Hypothyroidism Conclusion/Plan: - Unknown recent TSH - Is prescribed Synthroid at home Plan: Check TSH in the AM, continue medication (7) Obstructive sleep apnea Conclusion/Plan: - appears to be compliant with home CPAP - Family was bringing in for tonight - Bleed in oxygen at home, unknown flow liter Plan: Continue respiratory cares, order for home device is ordered (8) Non-STEMI (non-ST elevated myocardial infarction) Conclusion/Plan: - Reported that the patient was in a trial chemo last year in 2018 which lead to this diagnosis - Status post coronary stent Plan: continue to treat acute illness, await echo results (9) Chest pain Conclusion/Plan: - Reported to have started at home - Described as right greater than left that is on bilateral lateral rib cage region - Woke her up from sleeping - Became worse after this last round of chemo - Likely a consequence of acute PNA Plan: Serial troponins, monitor for worsening Qualifiers: Chest pain type: precordial pain Qualified Code(s): R07.2 - Precordial pain - Lab Results Lab results reviewed: Yes Tunde Bones: 11/08/18 06:30 11/08/18 06:30 - Diagnostic Imaging Results Diagnostic Imaging Results: positive: Final report reviewed Diagnostic Imaging Results Comments: EXAM: CT ANGIOGRAM CHEST EXAM DATE: 11/07/2018 04:41 PM IMPRESSION: 1. No pulmonary emboli. 2. Infiltrate right upper lobe inferiorly. Infiltrate right lower lobe superiorly. 3. Increasing mediastinal adenopathy. 4. Other chronic parenchymal findings similar to previous detailed above. Core Measures - Anticipated LOS I expect patient to be DC'd or transferred within 96 hours.: Yes - DVT/VTE - Prophylaxis VTE/DVT Device ordered at admit?: Yes VTE/DVT Prophylaxis med ordered at admit?: Yes - Stroke - Rehab Assessment Rehab services assessment to be ordered?: Yes - AMI - Statin at Admit Aspirin Prescribed on Admit: Yes
[2018-11-07] MEDS: SODIUM CHLORIDE 0.9% 1,000 ML IV SCH (19:48)
[2018-11-07] MEDS ORDERED: IPRATROPIUM/ALBUTEROL 3 ML NEB INH PRN (19:50)
[2018-11-07] MEDS: IPRATROPIUM/ALBUTEROL 3 ML NEB INH SCH (19:59)
[2018-11-07] MEDS ORDERED: VANCOMYCIN PER PHARMACY 0.1 GM in SODIUM CHLORIDE 0.9% 250 ML IV SCH (20:00)
[2018-11-07] MEDS ORDERED: VANCOMYCIN INJ 1.5 GM in SODIUM CHLORIDE 0.9% 500 ML IV SCH (20:00)
[2018-11-07] MEDS ORDERED: CARBAMIDE PEROXIDE 6.5% OTIC DROPS EACHEAR SCH (20:47)
[2018-11-07] MEDS: SODIUM CHLORIDE FLUSH 0.9% 10 ML SYRINGE IVP PRN ×2 (21:33→21:45)
[2018-11-07] MEDS: ACETAMINOPHEN 325 MG TABLET PO PRN (21:56)
[2018-11-07] MEDS: FAMOTIDINE 20 MG TABLET PO SCH (21:56)
[2018-11-07] MEDS: NEOMYCIN/POLYMYX/HC OTIC DROPS LEFTEAR SCH (22:00)
[2018-11-07 22:11] LABS: INR 1.2 (0.8-1.2); PT - PROTHROMBIN TIME 13.7 secs (9.9-12.6)
[2018-11-08] MEDS: SODIUM CHLORIDE FLUSH 0.9% 10 ML SYRINGE IVP SCH ×3 (01:07→16:14)
[2018-11-08] MEDS: HYDROcod/ACETAM 5/325 MG TABLET PO PRN ×2 (01:55→18:45)
[2018-11-08] MEDS: NEOMYCIN/POLYMYX/HC OTIC DROPS LEFTEAR SCH ×3 (05:41→21:08)
[2018-11-08] MEDS ORDERED: CEFEPIME 2 GM in SODIUM CHLORIDE 0.9% MINIBAG 100 ML IV SCH (06:00)
[2018-11-08 06:41] LABS: BASOPHILS % (AUTO) 1.5 %; EOSINOPHILS % (AUTO) 0.5 %; HGB - HEMOGLOBIN 10.5 g/dL (12.0-16.0); LYMPHOCYTES # (AUTO) 0.5 10^3/uL (1.5-3.5); LYMPHOCYTES % (AUTO) 62.8 %; MEAN CORPUSCULAR HEMOGLOBIN 34.7 pg (27.0-31.0); MEAN CORPUSCULAR HGB CONC 34.2 g/dL (32.0-36.0); MEAN CORPUSCULAR VOLUME 101.2 fL (81.0-99.0); MEAN PLATELET VOLUME 8.3 fL (7.9-10.8); MONOCYTES % (AUTO) 5.2 %; PLT - PLATELET COUNT 193 10^3/uL (130-450); RED BLOOD COUNT 3.02 10^6/uL (4.20-5.40); RED CELL DISTRIBUTION WIDTH 13.1 % (12.0-15.0)
[2018-11-08 06:45] LABS: NEUTROPHILS # (AUTO) 0.2 10^3/uL (1.5-6.6); WHITE BLOOD COUNT 0.8 x10^3/uL (4.8-10.8)
[2018-11-08 06:54] LABS: ALBUMIN 2.8 g/dL (3.2-5.5); CALCIUM 8.3 mg/dL (8.5-10.3); CREATININE 0.7 mg/dL (0.4-1.0); PHOSPHORUS 2.5 mg/dL (2.5-4.6)
[2018-11-08] MEDS: SODIUM CHLORIDE 0.9% 1,000 ML IV SCH (08:09)
[2018-11-08] MEDS: IPRATROPIUM/ALBUTEROL 3 ML NEB INH SCH ×4 (09:10→20:45)
[2018-11-08] MEDS: SERTRALINE 50 MG TABLET PO SCH (09:30)
[2018-11-08] MEDS: ENOXAPARIN 40 MG/0.4 ML SYRINGE SUBQ SCH (09:30)
[2018-11-08] MEDS: FAMOTIDINE 20 MG TABLET PO SCH ×2 (09:30→21:08)
[2018-11-08] MEDS: CLOPIDOGREL 75 MG TABLET PO SCH (09:30)
[2018-11-08] MEDS: LEVOTHYROXINE 75 MCG TABLET PO SCH (09:30)
[2018-11-08] MEDS: POLYETHYLENE GLYCOL 3350 17 GM PACKET PO SCH (09:31)
[2018-11-08] MEDS: ONDANSETRON 4 MG/2 ML VIAL IVP PRN (09:57)
--- NOTE | 2018-11-08 12:05 | PROVIDER PROGRESS NOTE ---
Subjective - Prog Note Date Prog Note Date: 11/08/18 Prog Note Time: 12:04 - Subjective Pt reports feeling: Improved Subjective: Rhina appears comfortable, and complains of continued right lateral chest pain on exam, although does not participate well today due to ongoing lethargy. Current Medications - Current Medications Current Medications: Active Medications: Acetaminophen (Tylenol) 650 mg PO Q4HR PRN Hydrocodone Bitart/Acetaminophen ([place] 5/325) 1 tab PO Q4HR PRN Albuterol/Ipratropium (Duoneb) 3 ml INH Q4HR PRN Albuterol/Ipratropium (Duoneb) 3 ml INH RTQID TIM Clopidogrel Bisulfate (Plavix) 75 mg PO DAILY TIM Enoxaparin Sodium (Lovenox) 40 mg SUBQ DAILY TIM Famotidine (Pepcid) 20 mg PO BID TIM Vancomycin HCl 1 gm/Vancomycin HCl 250 mg/ Sodium Chloride 250 mls @ 167 mls/hr IV Q12H TIM Cefepime HCl 2 gm/ Sodium (Chloride) 100 mls @ 200 mls/hr IV Q8H TIM Levothyroxine Sodium (Synthroid) 75 mcg PO DAILY TIM Methylprednisolone (Solu-Medrol (40mg Vial)) 40 mg IVP TID TIM Neomycin/Polymyxin/Hydrocortisone (Cortisporin Otic Drops) 4 drops LEFTEAR TID TIM Ondansetron HCl (Zofran Inj) 4 mg IVP Q6HR PRN Polyethylene Glycol (Miralax) 17 gm PO DAILY TIM Sertraline HCl (Zoloft) 50 mg PO DAILY TIM Temazepam (Restoril) 15 mg PO QPM PRN HOME meds: Calcium Carbonate/Vitamin D3 [Calcium 600-Vit D3 400 Tablet] 1 tab PO DAILY 07/04/16 Levothyroxine Sodium 75 mcg PO DAILY 07/04/16 Albuterol Sulf [Ventolin Hfa Inhaler] 2 puffs INH Q4HR PRN 11/01/18 Clopidogrel [Plavix] 75 mg PO DAILY 11/01/18 Losartan [Cozaar] 25 mg PO DAILY 11/01/18 Sertraline [Zoloft] 50 mg PO DAILY 11/01/18 Dexamethasone [Decadron] 4 mg PO [id number] 11/07/18 Famotidine 20 mg PO DAILY PRN 11/07/18 Fluticasone/Salmeterol [Advair Hfa 115-21 Mcg Inhaler] 1 puffs INH BID 11/07/18 Rosuvastatin Calcium 20 mg PO DAILY 11/07/18 Vitamin B Complex 1 tab PO DAILY 11/07/18 Objective - Vital Signs/Intake & Output Reviewed Vital Signs: Yes Vital Signs: Vital Signs x48h Temp Pulse Pulse Resp BP Pulse Ox 11/08/18 09:10 88 20 11/08/18 08:22 36.8 C 82 16 118/56 L 98 11/08/18 05:00 37.4 C 84 22 125/51 L 97 Intake & Output: Intake & Output 11/05/18 11/06/18 11/07/18 11/08/18 23:59 23:59 23:59 23:59 Intake Total 1971.5 2127.500 Output Total 400 Balance 1971. 1727.500 - Objective General Appearance: positive: Mild distress, Lethargic Eyes Bilateral: positive: PERRL ENT: positive: Pharyngeal erythema, Oral lesions, Dry mucous membranes Neck: positive: No JVD, Lymphadenopathy (R), Lymphadenopathy (L), Stiff neck Respiratory: positive: Chest non-tender, No respiratory distress, Wheezes, Rhonchi Cardiovascular: positive: No gallop, Irregularly irregular, Systolic murmur, Decreased pulse(s) Peripheral Pulses: 1+ Radial (R), 1+ Radial (L) Abdomen: positive: Non-tender, Nml bowel sounds, Hepatomegaly, Other (roiunded, soft) Back: positive: Nml inspection Skin: positive: No rash, Warm, Dry, Pallor Extremities: positive: Non-tender, Pedal edema Neurologic/Psychiatric: positive: Disoriented to place, Disoriented to time, Weakness, Sensory loss, Slurred/abnml speech (due to acute illness) Reflexes: Bicep (R): 2+, Bicep (L): 2+ - Lab Results Fish Bones: 11/08/18 06:30 11/08/18 06:30 Other Labs: Lab Results x24hrs 11/08/18 11/08/18 11/07/18 Range/Units 06:30 06:30 21:50 WBC 0.8 L* (4.8-10.8) x10^3/uL RBC 3.02 L (4.20-5.40) 10^6/uL Hgb 10.5 L (12.0-16.0) g/dL Hct 30.6 L (37.0-47.0) % MCV 101.2 H (81.0-99.0) fL MCH 34.7 H (27.0-31.0) pg MCHC 34.2 (32.0-36.0) g/dL RDW 13.1 (12.0-15.0) % Plt Count 193 (130-450) 10^3/uL MPV 8.3 (7.9-10.8) fL Neut # (Auto) 0.2 L* Lymph # (Auto) 0.5 L [place] # (Auto) 0.0 Eos # (Auto) 0.0 Baso # (Auto) 0.0 Absolute Nucleated RBC 0.00 Total Counted Band Neuts % (Manual) (0 - 10) % Abnorm Lymph % (Manual) % Nucleated RBC % 0.1 Neutrophils # (Manual) (1.5-6.6) 10^3/uL Lymphocytes # (Manual) (1.5-3.5) 10^3/uL Monocytes # (Manual) (0.0-1.0) 10^3/uL Eosinophils # (Manual) (0-0.7) 10^3/uL Basophils # (Manual) (0-0.1) 10^3/uL Differential Comment WBC Morphology (NORMAL) Platelet Estimate (NORMAL) Platelet Morphology (NORMAL) RBC Morph Micro Appear (NORMAL) PT 13.7 H (9.9-12.6) secs INR 1.2 (0.8-1.2) Sodium 131 L (135-145) mmol/L Potassium 3.9 (3.5-5.0) mmol/L Chloride 100 L (101-111) mmol/L Carbon Dioxide 23 (21-32) mmol/L Anion Gap 8.0 (6-13) BUN 14 (6-20) mg/dL Creatinine 0.7 (0.4-1.0) mg/dL Estimated GFR (MDRD) 81 L (>89) Glucose 122 H (70-100) mg/dL Lactic Acid (0.5-2.2) mmol/L Calcium 8.3 L (8.5-10.3) mg/dL Phosphorus 2.5 (2.5-4.6) mg/dL Total Bilirubin (0.2-1.0) mg/dL AST (10-42) IU/L ALT (10-60) IU/L Alkaline Phosphatase (42-121) IU/L Troponin I (<0.49) ng/mL C-Reactive Protein (0-1.0) mg/dL B-Natriuretic Peptide (5-100) pg/mL Total Protein (6.7-8.2) g/dL Albumin 2.8 L (3.2-5.5) g/dL Globulin (2.1-4.2) g/dL Albumin/Globulin Ratio (1.0-2.2) Lipase (22-51) U/L TSH (0.34-5.60) uIU/mL Urine Color Urine Clarity (CLEAR) Urine pH (5.0-7.5) PH Ur Specific Sun[place] (1.002-1.030) Urine Protein (NEGATIVE) mg/dL Urine Glucose (UA) (NEGATIVE) mg/dL Urine Ketones (NEGATIVE) mg/dL Urine Occult Blood (NEGATIVE) Urine Nitrite (NEGATIVE) Urine Bilirubin (NEGATIVE) Urine Urobilinogen (NORMAL) E.U./dL Ur Leukocyte Esterase (NEGATIVE) Ur Microscopic Review Urine Culture Comments Influenza A (Rapid) (Negative) Influenza B (Rapid) (Negative) 11/07/18 11/07/18 11/07/18 Range/Units 21:50 21:50 21:50 WBC (4.8-10.8) x10^3/uL RBC (4.20-5.40) 10^6/uL Hgb (12.0-16.0) g/dL Hct (37.0-47.0) % MCV (81.0-99.0) fL MCH (27.0-31.0) pg MCHC (32.0-36.0) g/dL RDW (12.0-15.0) % Plt Count (130-450) 10^3/uL MPV (7.9-10.8) fL Neut # (Auto) Lymph # (Auto) [place] # (Auto) Eos # (Auto) Baso # (Auto) Absolute Nucleated RBC Total Counted Band Neuts % (Manual) (0 - 10) % Abnorm Lymph % (Manual) % Nucleated RBC % Neutrophils # (Manual) (1.5-6.6) 10^3/uL Lymphocytes # (Manual) (1.5-3.5) 10^3/uL Monocytes # (Manual) (0.0-1.0) 10^3/uL Eosinophils # (Manual) (0-0.7) 10^3/uL Basophils # (Manual) (0-0.1) 10^3/uL Differential Comment WBC Morphology (NORMAL) Platelet Estimate (NORMAL) Platelet Morphology (NORMAL) RBC Morph Micro Appear (NORMAL) PT (9.9-12.6) secs INR (0.8-1.2) Sodium (135-145) mmol/L Potassium (3.5-5.0) mmol/L Chloride (101-111) mmol/L Carbon Dioxide (21-32) mmol/L Anion Gap (6-13) BUN (6-20) mg/dL Creatinine (0.4-1.0) mg/dL Estimated GFR (MDRD) (>89) Glucose (70-100) mg/dL Lactic Acid 0.9 (0.5-2.2) mmol/L Calcium (8.5-10.3) mg/dL Phosphorus (2.5-4.6) mg/dL Total Bilirubin (0.2-1.0) mg/dL AST (10-42) IU/L ALT (10-60) IU/L Alkaline Phosphatase (42-121) IU/L Troponin I (<0.49) ng/mL C-Reactive Protein 4.8 H (0-1.0) mg/dL B-Natriuretic Peptide (5-100) pg/mL Total Protein (6.7-8.2) g/dL Albumin (3.2-5.5) g/dL Globulin (2.1-4.2) g/dL Albumin/Globulin Ratio (1.0-2.2) Lipase (22-51) U/L TSH 0.65 (0.34-5.60) uIU/mL Urine Color Urine Clarity (CLEAR) Urine pH (5.0-7.5) PH Ur Specific [place] (1.002-1.030) Urine Protein (NEGATIVE) mg/dL Urine Glucose (UA) (NEGATIVE) mg/dL Urine Ketones (NEGATIVE) mg/dL Urine Occult Blood (NEGATIVE) Urine Nitrite (NEGATIVE) Urine Bilirubin (NEGATIVE) Urine Urobilinogen (NORMAL) E.U./dL Ur Leukocyte Esterase (NEGATIVE) Ur Microscopic Review Urine Culture Comments Influenza A (Rapid) (Negative) Influenza B (Rapid) (Negative) 11/07/18 11/07/18 11/07/18 Range/Units 21:50 21:45 16:57 WBC (4.8-10.8) x10^3/uL RBC (4.20-5.40) 10^6/uL Hgb (12.0-16.0) g/dL Hct (37.0-47.0) % MCV (81.0-99.0) fL MCH (27.0-31.0) pg MCHC (32.0-36.0) g/dL RDW (12.0-15.0) % Plt Count (130-450) 10^3/uL MPV (7.9-10.8) fL Neut # (Auto) Lymph # (Auto) [place] # (Auto) Eos # (Auto) Baso # (Auto) Absolute Nucleated RBC Total Counted Band Neuts % (Manual) (0 - 10) % Abnorm Lymph % (Manual) % Nucleated RBC % Neutrophils # (Manual) (1.5-6.6) 10^3/uL Lymphocytes # (Manual) (1.5-3.5) 10^3/uL Monocytes # (Manual) (0.0-1.0) 10^3/uL Eosinophils # (Manual) (0-0.7) 10^3/uL Basophils # (Manual) (0-0.1) 10^3/uL Differential Comment WBC Morphology (NORMAL) Platelet Estimate (NORMAL) Platelet Morphology (NORMAL) RBC Morph Micro Appear (NORMAL) PT (9.9-12.6) secs INR (0.8-1.2) Sodium (135-145) mmol/L Potassium (3.5-5.0) mmol/L Chloride (101-111) mmol/L Carbon Dioxide (21-32) mmol/L Anion Gap (6-13) BUN (6-20) mg/dL Creatinine (0.4-1.0) mg/dL Estimated GFR (MDRD) (>89) Glucose (70-100) mg/dL Lactic Acid (0.5-2.2) mmol/L Calcium (8.5-10.3) mg/dL Phosphorus (2.5-4.6) mg/dL Total Bilirubin (0.2-1.0) mg/dL AST (10-42) IU/L ALT (10-60) IU/L Alkaline Phosphatase (42-121) IU/L Troponin I < 0.04 (<0.49) ng/mL C-Reactive Protein (0-1.0) mg/dL B-Natriuretic Peptide (5-100) pg/mL Total Protein (6.7-8.2) g/dL Albumin (3.2-5.5) g/dL Globulin (2.1-4.2) g/dL Albumin/Globulin Ratio (1.0-2.2) Lipase (22-51) U/L TSH (0.34-5.60) uIU/mL Urine Color YELLOW Urine Clarity CLEAR (CLEAR) Urine pH 5.5 (5.0-7.5) PH Ur Specific [place] 1.010 (1.002-1.030) Urine Protein NEGATIVE (NEGATIVE) mg/dL Urine Glucose (UA) NEGATIVE (NEGATIVE) mg/dL Urine Ketones NEGATIVE (NEGATIVE) mg/dL Urine Occult Blood TRACE-INTA (NEGATIVE) Urine Nitrite NEGATIVE (NEGATIVE) Urine Bilirubin NEGATIVE (NEGATIVE) Urine Urobilinogen 0.2 (NORMAL) (NORMAL) E.U./dL Ur Leukocyte Esterase NEGATIVE (NEGATIVE) Ur Microscopic Review NOT INDICATED Urine Culture Comments NOT INDICATED Influenza A (Rapid) Negative (Negative) Influenza B (Rapid) Negative (Negative) 11/07/18 11/07/18 11/07/18 Range/Units 16:10 16:10 16:10 WBC (4.8-10.8) x10^3/uL RBC (4.20-5.40) 10^6/uL Hgb (12.0-16.0) g/dL Hct (37.0-47.0) % MCV (81.0-99.0) fL MCH (27.0-31.0) pg MCHC (32.0-36.0) g/dL RDW (12.0-15.0) % Plt Count (130-450) 10^3/uL MPV (7.9-10.8) fL Neut # (Auto) Lymph # (Auto) [place] # (Auto) Eos # (Auto) Baso # (Auto) Absolute Nucleated RBC Total Counted Band Neuts % (Manual) (0 - 10) % Abnorm Lymph % (Manual) % Nucleated RBC % Neutrophils # (Manual) (1.5-6.6) 10^3/uL Lymphocytes # (Manual) (1.5-3.5) 10^3/uL Monocytes # (Manual) (0.0-1.0) 10^3/uL Eosinophils # (Manual) (0-0.7) 10^3/uL Basophils # (Manual) (0-0.1) 10^3/uL Differential Comment WBC Morphology (NORMAL) Platelet Estimate (NORMAL) Platelet Morphology (NORMAL) RBC Morph Micro Appear (NORMAL) PT (9.9-12.6) secs INR (0.8-1.2) Sodium (135-145) mmol/L Potassium (3.5-5.0) mmol/L Chloride (101-111) mmol/L Carbon Dioxide (21-32) mmol/L Anion Gap (6-13) BUN (6-20) mg/dL Creatinine (0.4-1.0) mg/dL Estimated GFR (MDRD) (>89) Glucose (70-100) mg/dL Lactic Acid 1.0 (0.5-2.2) mmol/L Calcium (8.5-10.3) mg/dL Phosphorus (2.5-4.6) mg/dL Total Bilirubin (0.2-1.0) mg/dL AST (10-42) IU/L ALT (10-60) IU/L Alkaline Phosphatase (42-121) IU/L Troponin I < 0.04 (<0.49) ng/mL C-Reactive Protein (0-1.0) mg/dL B-Natriuretic Peptide 53 (5-100) pg/mL Total Protein (6.7-8.2) g/dL Albumin (3.2-5.5) g/dL Globulin (2.1-4.2) g/dL Albumin/Globulin Ratio (1.0-2.2) Lipase (22-51) U/L TSH (0.34-5.60) uIU/mL Urine Color Urine Clarity (CLEAR) Urine pH (5.0-7.5) PH Ur Specific [place] (1.002-1.030) Urine Protein (NEGATIVE) mg/dL Urine Glucose (UA) (NEGATIVE) mg/dL Urine Ketones (NEGATIVE) mg/dL Urine Occult Blood (NEGATIVE) Urine Nitrite (NEGATIVE) Urine Bilirubin (NEGATIVE) Urine Urobilinogen (NORMAL) E.U./dL Ur Leukocyte Esterase (NEGATIVE) Ur Microscopic Review Urine Culture Comments Influenza A (Rapid) (Negative) Influenza B (Rapid) (Negative) 11/07/18 11/07/18 Range/Units 16:10 16:10 WBC 1.2 L* (4.8-10.8) x10^3/uL RBC 3.33 L (4.20-5.40) 10^6/uL Hgb 11.4 L (12.0-16.0) g/dL Hct 33.9 L (37.0-47.0) % MCV 101.6 H (81.0-99.0) fL MCH 34.3 H (27.0-31.0) pg MCHC 33.7 (32.0-36.0) g/dL RDW 13.5 (12.0-15.0) % Plt Count 229 (130-450) 10^3/uL MPV 8.8 (7.9-10.8) fL Neut # (Auto) Not Reportable Lymph # (Auto) Not Reportable [place] # (Auto) Not Reportable Eos # (Auto) Not Reportable Baso # (Auto) Not Reportable Absolute Nucleated RBC Not Reportable Total Counted 100 Band Neuts % (Manual) 3 (0 - 10) % Abnorm Lymph % (Manual) 0 % Nucleated RBC % Not Reportable Neutrophils # (Manual) 0.6 L (1.5-6.6) 10^3/uL Lymphocytes # (Manual) 0.5 L (1.5-3.5) 10^3/uL Monocytes # (Manual) 0.0 (0.0-1.0) 10^3/uL Eosinophils # (Manual) 0.0 (0-0.7) 10^3/uL Basophils # (Manual) 0.0 (0-0.1) 10^3/uL Differential Comment MANUAL DIFFERENTIAL WBC Morphology NORMAL APPEARANCE (NORMAL) Platelet Estimate NORMAL (130-450,000) (NORMAL) Platelet Morphology NORMAL APPEARANCE (NORMAL) RBC Morph Micro Appear NORMAL APPEARANCE (NORMAL) PT (9.9-12.6) secs INR (0.8-1.2) Sodium 133 L (135-145) mmol/L Potassium 4.0 (3.5-5.0) mmol/L Chloride 100 L (101-111) mmol/L Carbon Dioxide 24 (21-32) mmol/L Anion Gap 9.0 (6-13) BUN 19 (6-20) mg/dL Creatinine 0.8 (0.4-1.0) mg/dL Estimated GFR (MDRD) 70 L (>89) Glucose 120 H (70-100) mg/dL Lactic Acid (0.5-2.2) mmol/L Calcium 9.5 (8.5-10.3) mg/dL Phosphorus (2.5-4.6) mg/dL Total Bilirubin 0.4 (0.2-1.0) mg/dL AST 23 (10-42) IU/L ALT 20 (10-60) IU/L Alkaline Phosphatase 64 (42-121) IU/L Troponin I (<0.49) ng/mL C-Reactive Protein (0-1.0) mg/dL B-Natriuretic Peptide (5-100) pg/mL Total Protein 6.0 L (6.7-8.2) g/dL Albumin 3.7 (3.2-5.5) g/dL Globulin 2.3 (2.1-4.2) g/dL Albumin/Globulin Ratio 1.6 (1.0-2.2) Lipase 25 (22-51) U/L TSH (0.34-5.60) uIU/mL Urine Color Urine Clarity (CLEAR) Urine pH (5.0-7.5) PH Ur Specific [place] (1.002-1.030) Urine Protein (NEGATIVE) mg/dL Urine Glucose (UA) (NEGATIVE) mg/dL Urine Ketones (NEGATIVE) mg/dL Urine Occult Blood (NEGATIVE) Urine Nitrite (NEGATIVE) Urine Bilirubin (NEGATIVE) Urine Urobilinogen (NORMAL) E.U./dL Ur Leukocyte Esterase (NEGATIVE) Ur Microscopic Review Urine Culture Comments Influenza A (Rapid) (Negative) Influenza B (Rapid) (Negative) ABX Reporting Has patient been on IV antibiotics over the past 48 hours?: Yes Sepsis Event Note (H) - Evaluation Current Stage of Sepsis: Sepsis Possible source of Sepsis: positive: Pulmonary - Sepsis Criteria Sepsis Criteria: Recorded Heart Rate greater than 90 bpm, Recorded Respiratory Rate greater than 20, Respiratory: Increasing oxygen requirements, WBC count greater than 12,000 or less than 4000, WEAVER HAND LOOM: altered consciousness (unrelated to primary neuro pathology) Assessment/Plan - Problem List (1) Neutropenic fever Impression: - Temp max initially 39.0, and today max has been 37.7 - Calculated ANC was 43.2 cells/microL - Influenza A & B has been negative - Blood cultures x2 samples ron VALENTINEROSSI - Port culture sample is pending - Urine culture is pending, no sputum culture obtained Plan: Continue cefepime/vanco IV, routine labs (2) Right lower lobe pneumonia Impression: - Current diagnosis with right upper and lower lobe pneumonia - Neutropenic, calculated ANC 43.2 - Fever charted at 39 C orally per chart, fevers reported at home - Requiring high level of oxygen at 4-8L nasal cannula verses venti-mask - Duo nebs as needed and QID - Continue on Cefepime/vanco - Start moderate dose IV steroids Plan: Continue cefepime/vanco, attempt to obtain sputum, continue respiratory care (3) Acute metabolic encephalopathy Impression: - Per family, the patient is typically clear minded - Has a home in [place], [place] and here on [facility] and usually manages on her own, 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 Micheal Francisco (6) Hypothyroidism Impression: - TSH today was 0.65 - Is prescribed Synthroid at home and continued here Plan: Continue medication (7) Obstructive sleep apnea Impression: - appears to be compliant with home CPAP with an RVSP at rest of 38 mmHg on echo today - Bleed in oxygen at home, unknown flow liter - Did not tolerate overnight, likely due to increased oxygen needs Plan: Continue respiratory cares, order for home device is ordered (8) Non-STEMI (non-ST elevated myocardial infarction) Impression: - Reported that the patient was in a trial chemo last year in 2018 which lead to this diagnosis - Status post coronary stent Plan: continue to treat acute illness (9) Chest pain Impression: - Reported to have started at home - Described as right greater than left that is on bilateral lateral rib cage region - Wakes her up from sleeping - Became worse after this last round of chemo - Likely a consequence of acute PNA - Still a complaint today Plan: AM troponin, monitor for worsening Qualifiers: Chest pain type: precordial pain Qualified Code(s): R07.2 - Precordial pain
[2018-11-08] MEDS: VANCOMYCIN INJ 1 GM, VANCOMYCIN INJ 250 MG in SODIUM CHLORIDE 0.9% 250 ML IV SCH (14:47)
[2018-11-08] MEDS: CEFEPIME 2 GM in SODIUM CHLORIDE 0.9% MINIBAG 100 ML IV SCH (16:14)
[2018-11-08] MEDS: methylPREDNISolone SUCCINATE 40 MG/ML VIAL IVP SCH (22:24)
[2018-11-09] MEDS: CEFEPIME 2 GM in SODIUM CHLORIDE 0.9% MINIBAG 100 ML IV SCH ×4 (00:11→23:52)
[2018-11-09] MEDS: ONDANSETRON 4 MG/2 ML VIAL IVP PRN (01:27)
[2018-11-09] MEDS: HYDROcod/ACETAM 5/325 MG TABLET PO PRN (01:37)
[2018-11-09] MEDS: VANCOMYCIN INJ 1 GM, VANCOMYCIN INJ 250 MG in SODIUM CHLORIDE 0.9% 250 ML IV SCH ×2 (02:03→14:08)
[2018-11-09] MEDS: SODIUM CHLORIDE FLUSH 0.9% 10 ML SYRINGE IVP SCH ×3 (02:08→17:47)
[2018-11-09 05:32] LABS: BASOPHILS % (AUTO) 0.3 %; EOSINOPHILS % (AUTO) 0.1 %; HGB - HEMOGLOBIN 10.6 g/dL (12.0-16.0); LYMPHOCYTES % (AUTO) 11.8 %; MEAN CORPUSCULAR HEMOGLOBIN 34.1 pg (27.0-31.0); MEAN CORPUSCULAR HGB CONC 33.5 g/dL (32.0-36.0); MEAN CORPUSCULAR VOLUME 101.8 fL (81.0-99.0); MEAN PLATELET VOLUME 8.4 fL (7.9-10.8); MONOCYTES % (AUTO) 5.6 %; NEUTROPHILS % (AUTO) 82.2 %; PLT - PLATELET COUNT 180 10^3/uL (130-450); RED CELL DISTRIBUTION WIDTH 13.2 % (12.0-15.0); WHITE BLOOD COUNT 2.5 x10^3/uL (4.8-10.8)
[2018-11-09 05:37] LABS: ABNORMAL LYMPHS % (MANUAL) 0 %
[2018-11-09 06:05] LABS: ALBUMIN 2.9 g/dL (3.2-5.5); CALCIUM 8.7 mg/dL (8.5-10.3); CREATININE 0.6 mg/dL (0.4-1.0); CRP - C-REACTIVE PROTEIN 32.2 mg/dL (0-1.0); PHOSPHORUS 2.5 mg/dL (2.5-4.6)
[2018-11-09 06:24] LABS: BAND NEUTROPHILS % (MANUAL) 21 %; DIFFERENTIAL COMMENT MANUAL DIFFERENTIAL; LYMPHOCYTES # (MANUAL) 0.2 10^3/uL (1.5-3.5); LYMPHOCYTES % (MANUAL) 9 %; NEUTROPHILS # (MANUAL) 2.3 10^3/uL (1.5-6.6); NEUTROPHILS % (MANUAL) 70 %; PLATELET ESTIMATE, MANUAL NORMAL (130-450,000) (NORMAL); RBC MORPHOLOGY (MULTIPLE) NORMAL APPEARANCE (NORMAL)
[2018-11-09] MEDS: methylPREDNISolone SUCCINATE 40 MG/ML VIAL IVP SCH ×3 (06:35→21:43)
[2018-11-09] MEDS: SODIUM CHLORIDE FLUSH 0.9% 10 ML SYRINGE IVP PRN ×2 (06:36→21:43)
[2018-11-09] MEDS: NEOMYCIN/POLYMYX/HC OTIC DROPS LEFTEAR SCH ×3 (06:43→22:26)
[2018-11-09] MEDS: IPRATROPIUM/ALBUTEROL 3 ML NEB INH SCH ×4 (07:17→19:57)
[2018-11-09] MEDS: CLOPIDOGREL 75 MG TABLET PO SCH (09:11)
[2018-11-09] MEDS: LEVOTHYROXINE 75 MCG TABLET PO SCH (09:11)
[2018-11-09] MEDS: ENOXAPARIN 40 MG/0.4 ML SYRINGE SUBQ SCH (09:11)
[2018-11-09] MEDS: SERTRALINE 50 MG TABLET PO SCH (09:11)
[2018-11-09] MEDS: POLYETHYLENE GLYCOL 3350 17 GM PACKET PO SCH (09:11)
[2018-11-09] MEDS: FAMOTIDINE 20 MG TABLET PO SCH ×2 (09:11→21:43)
[2018-11-09] MEDS: ACETAMINOPHEN 325 MG TABLET PO PRN ×2 (14:09→22:30)
--- NOTE | 2018-11-09 15:25 | PROVIDER PROGRESS NOTE ---
Subjective - Prog Note Date Prog Note Date: 11/09/18 - Subjective Pt reports feeling: Improved Subjective: pt report she feels better, and breath is better today. she denies fever on last night. she denies chest pain. Current Medications - Current Medications Current Medications: Active Medications Acetaminophen (Tylenol) 650 mg PO Q4HR PRN PRN Reason: Pain 1 to 4 Last Admin: 11/09/18 14:09 Dose: 650 mg Hydrocodone Bitart/Acetaminophen ([place] 5/325) 1 tab PO Q4HR PRN PRN Reason: PAIN Last Admin: 11/09/18 01:37 Dose: 1 tab Albuterol/Ipratropium (Duoneb) 3 ml INH Q4HR PRN PRN Reason: Wheezing Albuterol/Ipratropium (Duoneb) 3 ml INH RTQID [facility] Last Admin: 11/09/18 15:20 Dose: 3 ml Clopidogrel Bisulfate (Plavix) 75 mg PO DAILY [facility] Last Admin: 11/09/18 09:11 Dose: 75 mg Enoxaparin Sodium (Lovenox) 40 mg SUBQ DAILY [facility] Last Admin: 11/09/18 09:11 Dose: 40 mg Famotidine (Pepcid) 20 mg PO BID [facility] Last Admin: 11/09/18 09:11 Dose: 20 mg Vancomycin HCl 1 gm/Vancomycin HCl 250 mg/ Sodium Chloride 250 mls @ 167 mls/hr IV Q12H [facility] Last Admin: 11/09/18 14:08 Dose: 167 mls/hr Cefepime HCl 2 gm/ Sodium (Chloride) 100 mls @ 200 mls/hr IV Q8H [facility] Last Infusion: 11/09/18 10:48 Dose: Infused Levothyroxine Sodium (Synthroid) 75 mcg PO DAILY [facility] Last Admin: 11/09/18 09:11 Dose: 75 mcg Methylprednisolone (Solu-Medrol (40mg Vial)) 40 mg IVP TID [facility] Last Admin: 11/09/18 14:04 Dose: 40 mg Neomycin/Polymyxin/Hydrocortisone (Cortisporin Otic Drops) 4 drops LEFTEAR TID [facility] Last Admin: 11/09/18 14:08 Dose: Not Given Ondansetron HCl (Zofran Inj) 4 mg IVP Q6HR PRN PRN Reason: Nausea / Vomiting Last Admin: 11/09/18 01:27 Dose: 4 mg Polyethylene Glycol (Miralax) 17 gm PO DAILY [facility] Last Admin: 11/09/18 09:11 Dose: 17 gm Sertraline HCl (Zoloft) 50 mg PO DAILY [facility] Last Admin: 11/09/18 09:11 Dose: 50 mg Sodium Chloride (Normal Saline Flush 0.9%) 10 ml IVP PRN PRN PRN Reason: NEEDED PER PROVIDER ORDERS Last Admin: 11/09/18 06:36 Dose: 10 ml Sodium Chloride (Normal Saline Flush 0.9%) 10 ml IVP 0100,0900,1700 [facility] Last Admin: 11/09/18 09:12 Dose: 10 ml Temazepam (Restoril) 15 mg PO QPM PRN PRN Reason: Insomnia Calcium Carbonate/Vitamin D3 [Calcium 600-Vit D3 400 Tablet] 1 tab PO DAILY 07/04/16 Levothyroxine Sodium 75 mcg PO DAILY 07/04/16 Albuterol Sulf [Ventolin Hfa Inhaler] 2 puffs INH Q4HR PRN 11/01/18 Clopidogrel [Plavix] 75 mg PO DAILY 11/01/18 Losartan [Cozaar] 25 mg PO DAILY 11/01/18 Sertraline [Zoloft] 50 mg PO DAILY 11/01/18 Dexamethasone [Decadron] 4 mg PO [id number] 11/07/18 Famotidine 20 mg PO DAILY PRN 11/07/18 Fluticasone/Salmeterol [Advair Hfa 115-21 Mcg Inhaler] 1 puffs INH BID 11/07/18 Rosuvastatin Calcium 20 mg PO DAILY 11/07/18 Vitamin B Complex 1 tab PO DAILY 11/07/18 Objective - Vital Signs/Intake & Output Reviewed Vital Signs: Yes Vital Signs: Vital Signs x48h Temp Pulse Pulse Resp BP Pulse Ox 11/09/18 11:20 72 18 11/09/18 08:32 36.3 C L 70 16 116/55 L 94 Intake & Output: Intake & Output 11/06/18 11/07/18 11/08/18 11/09/18 23:59 23:59 23:59 23:59 Intake Total 1972.5 3682.500 1975 Output Total 1600 800 Balance 1971.5 2082.500 1175 - Objective General Appearance: positive: No acute distress, Alert. negative: Lethargic Eyes Bilateral: positive: Normal inspection, PERRL, No lid inflammation, Conjunctivae nml ENT: positive: ENT inspection nml, Pharynx nml, No signs of dehydration. negative: Purulent nasal drainage, Pharyngeal erythema, Oral lesions Neck: positive: Nml inspection, Thyroid nml, No JVD, Trachea midline. negative: Thyromegaly, Lymphadenopathy (R), Lymphadenopathy (L), Stiff neck, Swelling/bruising, Tracheal deviation Respiratory: positive: Chest non-tender, No respiratory distress, Breath sounds nml. negative: Wheezes, Rales, Rhonchi Cardiovascular: positive: Regular rate & rhythm, No murmur, No gallop. negative: Irregularly irregular, Extrasystoles, Tachycardia, Bradycardia, JVD present, Systolic murmur, Diastolic murmur Peripheral Pulses: 2+ Radial (R), 2+ Radial (L), 2+ Dorsalis pedis (R), 2+ Dorsalis pedis (L) Abdomen: positive: Non-tender, No organomegaly, Nml bowel sounds, No distention. negative: Tenderness, Guarding, Rebound Back: positive: Nml inspection. negative: CVA tenderness (R), CVA tenderness (L) Skin: positive: Color nml, No rash, Warm, Dry. negative: Cyanosis, Diaphoresis, Pallor Extremities: positive: Non-tender, Full ROM, Nml appearance. negative: Calf tenderness, Joint swelling, Francisco's sign/cords Neurologic/Psychiatric: positive: Oriented x3, Sensation nml, Mood/affect nml. negative: Weakness, Sensory loss, Facial droop, Slurred/abnml speech, Depressed mood/affect - Lab Results Fish Bones: 11/09/18 05:05 11/09/18 05:20 Other Labs: Lab Results x24hrs 11/09/18 11/09/18 11/09/18 Range/Units 05:20 05:20 05:20 WBC (4.8-10.8) x10^3/uL RBC (4.20-5.40) 10^6/uL Hgb (12.0-16.0) g/dL Hct (37.0-47.0) % MCV (81.0-99.0) fL MCH (27.0-31.0) pg MCHC (32.0-36.0) g/dL RDW (12.0-15.0) % Plt Count (130-450) 10^3/uL MPV (7.9-10.8) fL Neut # (Auto) Lymph # (Auto) [place] # (Auto) Eos # (Auto) Baso # (Auto) Absolute Nucleated RBC Total Counted Band Neuts % (Manual) (0 - 10) % Abnorm Lymph % (Manual) % Nucleated RBC % Neutrophils # (Manual) (1.5-6.6) 10^3/uL Lymphocytes # (Manual) (1.5-3.5) 10^3/uL Monocytes # (Manual) (0.0-1.0) 10^3/uL Eosinophils # (Manual) (0-0.7) 10^3/uL Basophils # (Manual) (0-0.1) 10^3/uL Differential Comment Platelet Estimate (NORMAL) RBC Morph Micro Appear (NORMAL) Sodium 134 L (135-145) mmol/L Potassium 3.8 (3.5-5.0) mmol/L Chloride 103 (101-111) mmol/L Carbon Dioxide 24 (21-32) mmol/L Anion Gap 7.0 (6-13) BUN 14 (6-20) mg/dL Creatinine 0.6 (0.4-1.0) mg/dL Estimated GFR (MDRD) 97 (>89) Glucose 143 H (70-100) mg/dL Calcium 8.7 (8.5-10.3) mg/dL Phosphorus 2.5 (2.5-4.6) mg/dL Troponin I < 0.04 (<0.49) ng/mL C-Reactive Protein 32.2 H (0-1.0) mg/dL B-Natriuretic Peptide 255 H (5-100) pg/mL Albumin 2.9 L (3.2-5.5) g/dL 11/09/18 Range/Units 05:05 WBC 2.5 L (4.8-10.8) x10^3/uL RBC 3.10 L (4.20-5.40) 10^6/uL Hgb 10.6 L (12.0-16.0) g/dL Hct 31.5 L (37.0-47.0) % MCV 101.8 H (81.0-99.0) fL MCH 34.1 H (27.0-31.0) pg MCHC 33.5 (32.0-36.0) g/dL RDW 13.2 (12.0-15.0) % Plt Count 180 (130-450) 10^3/uL MPV 8.4 (7.9-10.8) fL Neut # (Auto) Not Reportable Lymph # (Auto) Not Reportable [place] # (Auto) Not Reportable Eos # (Auto) Not Reportable Baso # (Auto) Not Reportable Absolute Nucleated RBC Not Reportable Total Counted 100 Band Neuts % (Manual) 21 H (0 - 10) % Abnorm Lymph % (Manual) 0 % Nucleated RBC % Not Reportable Neutrophils # (Manual) 2.3 (1.5-6.6) 10^3/uL Lymphocytes # (Manual) 0.2 L (1.5-3.5) 10^3/uL Monocytes # (Manual) 0.0 (0.0-1.0) 10^3/uL Eosinophils # (Manual) 0.0 (0-0.7) 10^3/uL Basophils # (Manual) 0.0 (0-0.1) 10^3/uL Differential Comment MANUAL DIFFERENTIAL Platelet Estimate NORMAL (130-450,000) (NORMAL) RBC Morph Micro Appear NORMAL APPEARANCE (NORMAL) Sodium (135-145) mmol/L Potassium (3.5-5.0) mmol/L Chloride (101-111) mmol/L Carbon Dioxide (21-32) mmol/L Anion Gap (6-13) BUN (6-20) mg/dL Creatinine (0.4-1.0) mg/dL Estimated GFR (MDRD) (>89) Glucose (70-100) mg/dL Calcium (8.5-10.3) mg/dL Phosphorus (2.5-4.6) mg/dL Troponin I (<0.49) ng/mL C-Reactive Protein (0-1.0) mg/dL B-Natriuretic Peptide (5-100) pg/mL Albumin (3.2-5.5) g/dL ABX Reporting Has patient been on IV antibiotics over the past 48 hours?: Yes Sepsis Event Note (H) - Evaluation Current Stage of Sepsis: Sepsis Possible source of Sepsis: positive: Pulmonary - Sepsis Criteria Sepsis Criteria: Recorded Heart Rate greater than 90 bpm, Recorded Respiratory Rate greater than 20, Respiratory: Increasing oxygen requirements, WBC count greater than 12,000 or less than 4000, 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 blood culture is negative preliminary port culture is negative. UA is negative Continue cefepime/vanco IV, routine labs (2) Right lower lobe pneumonia Impression: CXR with right upper and lower lobe pneumonia, pt complain right chest pain before slight better for O2 sat, pt had 98% sat on 4.5 liter of O2 Continue cefepime/vanco, attempt to obtain sputum, continue respiratory care (3) Acute metabolic encephalopathy Impression: great improved. pt has clearly talk with me today continue neuro check (4) Acute hypoxemic respiratory failure Impression: improved. Due to small cell lung cancer and PNA continue antibiotics for PNA Continue with duo-nebs, IV lower dosage of steroids (5) Small cell lung cancer Impression: pt has status post of 6th of chemotherapy 7 days ago advise pt followup Primary oncologist is Dr. Micheal Francisco closely (6) Hypothyroidism Impression: normal TSH, Continue medication (7) Obstructive sleep apnea Impression: stable, encourage pt use CPAP (8) hx of Non-STEMI (non-ST elevated myocardial infarction) Impression: stable, troponin is negative now. pt has no chest pain complain today, EKG is unremarkable ECHO reveal normal EF continue tele and vital monitor continue Plavix (9) Chest pain Impression: no chest pain today, troponin is negative EKG is unremarkable ECHO reveal normal EF continue tele and vital monitor continue Plavix
[2018-11-09] MEDS: TEMAZEPAM 15 MG CAPSULE PO PRN (23:49)
[2018-11-10] MEDS: SODIUM CHLORIDE FLUSH 0.9% 10 ML SYRINGE IVP SCH ×3 (01:04→16:29)
[2018-11-10] MEDS: VANCOMYCIN INJ 1 GM, VANCOMYCIN INJ 250 MG in SODIUM CHLORIDE 0.9% 250 ML IV SCH ×2 (02:02→14:09)
[2018-11-10] MEDS: SODIUM CHLORIDE 0.9% 500 ML IV PRN (02:09)
[2018-11-10] MEDS: NEOMYCIN/POLYMYX/HC OTIC DROPS LEFTEAR SCH ×3 (06:28→22:00)
[2018-11-10] MEDS: methylPREDNISolone SUCCINATE 40 MG/ML VIAL IVP SCH ×3 (06:30→21:58)
[2018-11-10] MEDS: SODIUM CHLORIDE FLUSH 0.9% 10 ML SYRINGE IVP PRN (06:31)
[2018-11-10 06:35] LABS: BASOPHILS % (AUTO) 0.1 %; LYMPHOCYTES # (AUTO) 0.5 10^3/uL (1.5-3.5); MEAN CORPUSCULAR HEMOGLOBIN 34.3 pg (27.0-31.0); MEAN CORPUSCULAR HGB CONC 33.6 g/dL (32.0-36.0); MEAN PLATELET VOLUME 8.7 fL (7.9-10.8); MONOCYTES # (AUTO) 0.4 10^3/uL (0.0-1.0); NEUTROPHILS # (AUTO) 3.6 10^3/uL (1.5-6.6); NEUTROPHILS % (AUTO) 79.9 %; PLT - PLATELET COUNT 194 10^3/uL (130-450); RED BLOOD COUNT 2.92 10^6/uL (4.20-5.40); WHITE BLOOD COUNT 4.5 x10^3/uL (4.8-10.8)
[2018-11-10 06:45] LABS: ALBUMIN 2.7 g/dL (3.2-5.5); CALCIUM 8.8 mg/dL (8.5-10.3); CREATININE 0.7 mg/dL (0.4-1.0); PHOSPHORUS 1.7 mg/dL (2.5-4.6)
[2018-11-10] MEDS: IPRATROPIUM/ALBUTEROL 3 ML NEB INH SCH ×4 (07:51→19:56)
[2018-11-10] MEDS: CEFEPIME 2 GM in SODIUM CHLORIDE 0.9% MINIBAG 100 ML IV SCH ×2 (08:39→16:17)
[2018-11-10] MEDS: ENOXAPARIN 40 MG/0.4 ML SYRINGE SUBQ SCH (08:39)
[2018-11-10] MEDS: LEVOTHYROXINE 75 MCG TABLET PO SCH (08:39)
[2018-11-10] MEDS: FAMOTIDINE 20 MG TABLET PO SCH ×2 (08:40→21:58)
[2018-11-10] MEDS: CLOPIDOGREL 75 MG TABLET PO SCH (08:40)
[2018-11-10] MEDS: NEUTRA-PHOS 250 MG TABLET PO SCH ×3 (08:40→16:28)
[2018-11-10] MEDS: SERTRALINE 50 MG TABLET PO SCH (08:40)
[2018-11-10] MEDS: POLYETHYLENE GLYCOL 3350 17 GM PACKET PO SCH (08:40)
--- NOTE | 2018-11-10 12:47 | PROVIDER PROGRESS NOTE ---
Subjective - Prog Note Date Prog Note Date: 11/10/18 - Subjective Pt reports feeling: Improved Subjective: pt report he feel some shortness of breath today and feel some dizziness on last night. She denies fever, chill, and chest pain now. Current Medications - Current Medications Current Medications: Active Medications Acetaminophen (Tylenol) 650 mg PO Q4HR PRN PRN Reason: Pain 1 to 4 Last Admin: 11/09/18 22:30 Dose: 650 mg Hydrocodone Bitart/Acetaminophen ([place] 5/325) 1 tab PO Q4HR PRN PRN Reason: PAIN Last Admin: 11/09/18 01:37 Dose: 1 tab Albuterol/Ipratropium (Duoneb) 3 ml INH Q4HR PRN PRN Reason: Wheezing Albuterol/Ipratropium (Duoneb) 3 ml INH RTQID [facility] Last Admin: 11/10/18 10:53 Dose: 3 ml Clopidogrel Bisulfate (Plavix) 75 mg PO DAILY [facility] Last Admin: 11/10/18 08:40 Dose: 75 mg Enoxaparin Sodium (Lovenox) 40 mg SUBQ DAILY [facility] Last Admin: 11/10/18 08:39 Dose: 40 mg Famotidine (Pepcid) 20 mg PO BID [facility] Last Admin: 11/10/18 08:40 Dose: 20 mg Vancomycin HCl 1 gm/Vancomycin HCl 250 mg/ Sodium Chloride 250 mls @ 167 mls/hr IV Q12H [facility] Last Infusion: 11/10/18 03:45 Dose: Infused Cefepime HCl 2 gm/ Sodium (Chloride) 100 mls @ 200 mls/hr IV Q8H [facility] Last Infusion: 11/10/18 09:34 Dose: Infused Sodium Chloride (Normal Saline 0.9%) 500 mls @ 0 mls/hr IV Q24H PRN PRN Reason: TKO RATE Last Admin: 11/10/18 02:09 Dose: 20 mls/hr Levothyroxine Sodium (Synthroid) 75 mcg PO DAILY [facility] Last Admin: 11/10/18 08:39 Dose: 75 mcg Methylprednisolone (Solu-Medrol (40mg Vial)) 30 mg IVP TID [facility] Last Admin: 11/10/18 06:30 Dose: 30 mg Neomycin/Polymyxin/Hydrocortisone (Cortisporin Otic Drops) 4 drops LEFTEAR TID [facility] Last Admin: 11/10/18 06:28 Dose: 4 drops Ondansetron HCl (Zofran Inj) 4 mg IVP Q6HR PRN PRN Reason: Nausea / Vomiting Last Admin: 11/09/18 01:27 Dose: 4 mg Polyethylene Glycol (Miralax) 17 gm PO DAILY [facility] Last Admin: 11/10/18 08:40 Dose: 17 gm Sertraline HCl (Zoloft) 50 mg PO DAILY [facility] Last Admin: 11/10/18 08:40 Dose: 50 mg Sodium Chloride (Normal Saline Flush 0.9%) 10 ml IVP PRN PRN PRN Reason: NEEDED PER PROVIDER ORDERS Last Admin: 11/10/18 06:31 Dose: 10 ml Sodium Chloride (Normal Saline Flush 0.9%) 10 ml IVP 0100,0900,1700 [facility] Last Admin: 11/10/18 06:30 Dose: 10 ml Sodium Phosphate (K-Phos Neutral) 250 mg PO TIDWM [facility] Last Admin: 11/10/18 11:52 Dose: 250 mg Temazepam (Restoril) 15 mg PO QPM PRN PRN Reason: Insomnia Last Admin: 11/09/18 23:49 Dose: 15 mg Calcium Carbonate/Vitamin D3 [Calcium 600-Vit D3 400 Tablet] 1 tab PO DAILY 07/04/16 Levothyroxine Sodium 75 mcg PO DAILY 07/04/16 Albuterol Sulf [Ventolin Hfa Inhaler] 2 puffs INH Q4HR PRN 11/01/18 Clopidogrel [Plavix] 75 mg PO DAILY 11/01/18 Losartan [Cozaar] 25 mg PO DAILY 11/01/18 Sertraline [Zoloft] 50 mg PO DAILY 11/01/18 Dexamethasone [Decadron] 4 mg PO [id number] 11/07/18 Famotidine 20 mg PO DAILY PRN 11/07/18 Fluticasone/Salmeterol [Advair Hfa 115-21 Mcg Inhaler] 1 puffs INH BID 11/07/18 Rosuvastatin Calcium 20 mg PO DAILY 11/07/18 Vitamin B Complex 1 tab PO DAILY 11/07/18 Objective - Vital Signs/Intake & Output Reviewed Vital Signs: Yes Vital Signs: Vital Signs x48h Temp Pulse Pulse Resp BP Pulse Ox 11/10/18 10:53 72 16 11/10/18 07:50 61 16 11/10/18 07:39 36.3 C L 59 L 16 115/58 L 93 Intake & Output: Intake & Output 11/07/18 11/08/18 11/09/18 11/10/18 23:59 23:59 23:59 23:59 Intake Total 1972.5 3682.500 2965 550 Output Total 1600 1000 525 Balance 1972.5 2082.500 1965 25 - Objective General Appearance: positive: No acute distress, Alert. negative: Lethargic Eyes Bilateral: positive: Normal inspection, PERRL, No lid inflammation, Conjunctivae nml ENT: positive: ENT inspection nml, Pharynx nml, No signs of dehydration. negative: Purulent nasal drainage, Pharyngeal erythema, Oral lesions Neck: positive: Nml inspection, Thyroid nml, No JVD, Trachea midline. negative: Thyromegaly, Lymphadenopathy (R), Lymphadenopathy (L), Stiff neck, Swelling/bruising, Tracheal deviation Respiratory: positive: Chest non-tender, Rhonchi. negative: Wheezes, Rales Cardiovascular: positive: Regular rate & rhythm, No murmur, No gallop. neg ative: Irregularly irregular, Extrasystoles, Tachycardia, Bradycardia, JVD present, Systolic murmur, Diastolic murmur Peripheral Pulses: 2+ Radial (R), 2+ Radial (L), 2+ Dorsalis pedis (R), 2+ Dorsalis pedis (L) Abdomen: positive: Non-tender, No organomegaly, Nml bowel sounds, No distention. negative: Tenderness, Guarding, Rebound Back: positive: Nml inspection. negative: CVA tenderness (R), CVA tenderness (L) Skin: positive: Color nml, No rash, Warm, Dry. negative: Cyanosis, Diaphoresis, Pallor Extremities: positive: Non-tender, Nml appearance. negative: Calf tenderness, Joint swelling, Francisco's sign/cords Neurologic/Psychiatric: positive: Oriented x3, Sensation nml, Mood/affect nml. negative: Weakness, Sensory loss, Facial droop, Slurred/abnml speech, Depressed mood/affect - Lab Results Fish Bones: 11/10/18 06:20 11/10/18 06:20 Other Labs: Lab Results x24hrs 11/10/18 11/10/18 Range/Units 06:20 06:20 WBC 4.5 L (4.8-10.8) x10^3/uL RBC 2.92 L (4.20-5.40) 10^6/uL Hgb 10.0 L (12.0-16.0) g/dL Hct 29.8 L (37.0-47.0) % MCV 102.0 H (81.0-99.0) fL MCH 34.3 H (27.0-31.0) pg MCHC 33.6 (32.0-36.0) g/dL RDW 13.0 (12.0-15.0) % Plt Count 194 (130-450) 10^3/uL MPV 8.7 (7.9-10.8) fL Neut # (Auto) 3.6 (1.5-6.6) 10^3/uL Lymph # (Auto) 0.5 L (1.5-3.5) 10^3/uL [place] # (Auto) 0.4 (0.0-1.0) 10^3/uL Eos # (Auto) 0.0 (0.0-0.7) 10^3/uL Baso # (Auto) 0.0 (0.0-0.1) 10^3/uL Absolute Nucleated RBC 0.00 x10^3/uL Nucleated RBC % 0.0 /100WBC Sodium 138 (135-145) mmol/L Potassium 3.8 (3.5-5.0) mmol/L Chloride 107 (101-111) mmol/L Carbon Dioxide 23 (21-32) mmol/L Anion Gap 8.0 (6-13) BUN 24 H (6-20) mg/dL Creatinine 0.7 (0.4-1.0) mg/dL Estimated GFR (MDRD) 81 L (>89) Glucose 145 H (70-100) mg/dL Calcium 8.8 (8.5-10.3) mg/dL Phosphorus 1.7 L (2.5-4.6) mg/dL Albumin 2.7 L (3.2-5.5) g/dL ABX Reporting Has patient been on IV antibiotics over the past 48 hours?: Yes Sepsis Event Note (H) - Evaluation Current Stage of Sepsis: Sepsis Possible source of Sepsis: positive: Pulmonary - Sepsis Criteria Sepsis Criteria: Recorded Heart Rate greater than 90 bpm, Recorded Respiratory Rate greater than 20, Respiratory: Increasing oxygen requirements, WBC count greater than 12,000 or less than 4000, 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 Pt's WBC could be recovered from her chemotherapy toxic side effect. pt had chemotherapy 8 days ago. continue to treat with antibiotics WBC is 2.5 today, from 0.8 on yesterday no fever on last night, and today. blood culture is negative preliminary port culture is negative. UA is negative Continue cefepime/vanco IV, routine labs (2) Right lower lobe pneumonia Impression: pt report she took 3 liter of O2 at home. now pt had 95% sat on 3 liter of O2. but pt complain of some shortness of breath. order CXR and followup the result continue to treat with antibiotics, continue respiratory care CXR with right upper and lower lobe pneumonia, pt complain right chest pain before slight better for O2 sat, pt had 98% sat on 4.5 liter of O2 Continue cefepime/vanco, attempt to obtain sputum, continue respiratory care (3) Acute metabolic encephalopathy Impression: great improved. pt has clearly talk with me today continue neuro check (4) Acute hypoxemic respiratory failure Impression: improved. Due to small cell lung cancer and PNA continue antibiotics for PNA Continue with duo-nebs, IV lower dosage of steroids (5) Small cell lung cancer Impression: pt has status post of 6th of chemotherapy 7 days ago advise pt followup Primary oncologist is Dr. Micheal Francisco closely (6) Hypothyroidism Impression: normal TSH, Continue medication (7) Obstructive sleep apnea Impression: stable, encourage pt use CPAP (8) hx of Non-STEMI (non-ST elevated myocardial infarction) Impression: stable, troponin is negative now. pt has no chest pain complain today, EKG is unremarkable ECHO reveal normal EF continue tele and vital monitor continue Plavix (9) Chest pain Impression: no chest pain today, troponin is negative EKG is unremarkable ECHO reveal normal EF continue tele and vital monitor continue Plavix (10) shortness of breath pt complain of some shortness of breath, pt had small cell lung cancel and treated with multiple times of experimental chemotherapy trial. It is not a new symptoms to pt per she report continue to treat pneumonia with antibiotics continue supplement O2 as needed continue respiratory care (9) dizziness pt report she feel dizziness when she stand from her bed to the chair, and dizziness was run away after she sit in the chair, pt report. pt is hemodynamic stable, normal blood pressure. pt report she had the similar episode before. fall precaution tele and vital monitor
[2018-11-10 14:03] LABS: VANCOMYCIN,TROUGH 19.5 ug/mL (10.0-20.0)
--- NOTE | 2018-11-10 14:17 | XRAY Report ---
Reason: SOB Procedure Date: 11/10/2018 Accession Number: [id number] / [id number] Procedure: XR - Chest 1 View X-Ray CPT Code: 31052 FULL RESULT: EXAM: CHEST RADIOGRAPHY EXAM DATE: 11/10/2018 01:12 PM. CLINICAL HISTORY: SOB. COMPARISON: CHEST 2 VIEW 11/01/2018 9:02 PM. TECHNIQUE: 1 view. FINDINGS: Lungs/Pleura: No focal consolidation. Streaky bibasilar opacities are stable to slightly increased. No edema. No pleural effusion. No pneumothorax. Mediastinum: Heart size within normal limits. Right chest port catheter in place. Other: None. IMPRESSION: Streaky bibasilar opacities are most likely atelectasis or scar. RADIA
[2018-11-10] MEDS: ACETAMINOPHEN 325 MG TABLET PO PRN (16:28)
[2018-11-10] MEDS: TEMAZEPAM 15 MG CAPSULE PO PRN (22:47)
[2018-11-11] MEDS: SODIUM CHLORIDE FLUSH 0.9% 10 ML SYRINGE IVP SCH ×2 (00:11→11:01)
[2018-11-11] MEDS: CEFEPIME 2 GM in SODIUM CHLORIDE 0.9% MINIBAG 100 ML IV SCH ×2 (00:11→09:09)
[2018-11-11] MEDS: VANCOMYCIN INJ 1 GM, VANCOMYCIN INJ 250 MG in SODIUM CHLORIDE 0.9% 250 ML IV SCH ×2 (02:26→14:17)
[2018-11-11] MEDS: SODIUM CHLORIDE 0.9% 500 ML IV PRN (02:28)
[2018-11-11] MEDS: methylPREDNISolone SUCCINATE 40 MG/ML VIAL IVP SCH ×2 (06:18→14:17)
[2018-11-11] MEDS: SODIUM CHLORIDE FLUSH 0.9% 10 ML SYRINGE IVP PRN (06:22)
[2018-11-11] MEDS: NEOMYCIN/POLYMYX/HC OTIC DROPS LEFTEAR SCH ×2 (06:22→14:17)
[2018-11-11 06:49] LABS: BASOPHILS % (AUTO) 0.1 %; HGB - HEMOGLOBIN 9.4 g/dL (12.0-16.0); LYMPHOCYTES # (AUTO) 1.1 10^3/uL (1.5-3.5); LYMPHOCYTES % (AUTO) 15.1 %; MEAN CORPUSCULAR HGB CONC 33.6 g/dL (32.0-36.0); MEAN CORPUSCULAR VOLUME 101.1 fL (81.0-99.0); MEAN PLATELET VOLUME 8.9 fL (7.9-10.8); MONOCYTES # (AUTO) 1.2 10^3/uL (0.0-1.0); MONOCYTES % (AUTO) 16.7 %; NEUTROPHILS # (AUTO) 4.9 10^3/uL (1.5-6.6); NEUTROPHILS % (AUTO) 68.1 %; PLT - PLATELET COUNT 211 10^3/uL (130-450); RED BLOOD COUNT 2.75 10^6/uL (4.20-5.40); RED CELL DISTRIBUTION WIDTH 13.5 % (12.0-15.0); WHITE BLOOD COUNT 7.2 x10^3/uL (4.8-10.8)
[2018-11-11 06:51] LABS: ALBUMIN 2.5 g/dL (3.2-5.5); CREATININE 0.6 mg/dL (0.4-1.0)
[2018-11-11 07:06] LABS: CALCIUM 8.3 mg/dL (8.5-10.3); PHOSPHORUS 1.8 mg/dL (2.5-4.6)
[2018-11-11 07:50] VITALS: BP 126/56
[2018-11-11] MEDS: IPRATROPIUM/ALBUTEROL 3 ML NEB INH SCH ×3 (08:09→16:26)
[2018-11-11 08:24] LABS: ABSOLUTE RETICS # AUTO 0.025 10^6/uL (0.020-0.110); MEAN RETIC VALUE 133.5; RED BLOOD COUNT 2.74 10^6/uL (4.20-5.40)
[2018-11-11 09:05] LABS: % IRON SATURATION 56 % (20-50); IRON 89 ug/dL (28-170); TOTAL IRON BINDING CAPACITY 158 ug/dL (250-450); TRANSFERRIN 113 mg/dL (192-382)
[2018-11-11] MEDS: POLYETHYLENE GLYCOL 3350 17 GM PACKET PO SCH ×2 (09:08→10:21)
[2018-11-11] MEDS: LEVOTHYROXINE 75 MCG TABLET PO SCH (09:08)
[2018-11-11] MEDS: NEUTRA-PHOS 250 MG TABLET PO SCH ×2 (09:09→11:48)
[2018-11-11] MEDS: FAMOTIDINE 20 MG TABLET PO SCH (09:09)
[2018-11-11] MEDS: CLOPIDOGREL 75 MG TABLET PO SCH (09:09)
[2018-11-11] MEDS: ENOXAPARIN 40 MG/0.4 ML SYRINGE SUBQ SCH (09:10)
[2018-11-11 09:16] LABS: FERRITIN 794.5 ng/mL (11.0-306.8)
--- NOTE | 2018-11-11 12:55 | CT Report ---
Reason: dizziness/headache Procedure Date: 11/11/2018 Accession Number: [id number] / [id number] Procedure: CT - HEAD WO CPT Code: FULL RESULT: EXAM: CT HEAD EXAM DATE: 11/11/2018 11:05 AM. CLINICAL HISTORY: Dizziness and headache. COMPARISON: None. TECHNIQUE: Multiaxial CT images were obtained from the foramen magnum to the vertex. Reformats: Sagittal and coronal. IV contrast: None. In accordance with CT protocol optimization, one or more of the following dose reduction techniques were utilized for this exam: automated exposure control, adjustment of mA and/or KV based on patient size, or use of iterative reconstructive technique. FINDINGS: Parenchyma: No intraparenchymal hemorrhage. No evidence of mass, midline shift, or CT findings of acute infarction. Woodall-white differentiation is distinct. Diffuse chronic microangiopathic white matter changes are evident. Extraaxial Spaces: Normal for age. No subdural or epidural collections identified. Ventricles: The ventricles and cortical sulci are enlarged, consistent with age-related tissue loss. Sinuses and orbits: Mastoid air cells are clear. Minimal bilateral maxillary antral mucosal thickening. No air-fluid levels. Bones: No evidence of fracture or calvarial defect. Other: Left temporomandibular joint degenerative changes with joint space narrowing and marginal spurring. IMPRESSION: 1. Generalized age-related cortical atrophic changes. 2. No evidence for intracranial hemorrhage, mass or large recent infarct. RADIA
--- NOTE | 2018-11-11 14:27 | Discharge Plan ---
Discharge Plan Disposition: Home, Self Care Condition: Poor Prescriptions: HYDROcod/ACETAM 5/325 [[place] 5/325] 1 tab PO Q4HR PRN #20 tablet PRN Reason: Pain cefUROXime axetil [Ceftin] 500 mg PO Q12H #24 tablet Diet: Regular Activity Restrictions: Activity as Tolerated Shower Restrictions: No (fall precaution) Instruction Topics: Pneumonia, Cefuroxime tablets, Acetaminophen Oxycodone tablets Additional Instructions or Follow Up instructions: you may followup your PCP in one week, followup your oncologist as your schedule. you were found to have pneumonia, Ceftin is prescribed to continue the treatment course. Should your symptoms return or worsen, you may present ER, call 911 or call your PCP for help. No Smoking: If you smoke, Please STOP! Call for help. Follow-up with: Lucy Nick MD [Primary Care Provider] -
--- NOTE | 2018-11-11 14:31 | DISCHARGE SUMMARY ---
Discharge Summary Discharge Date: 11/11/18 Discharging Provider: VIEIRA Primary Care Provider: Dr. Nick Condition at Discharge: Poor Discharge Disposition: 01 Home, Self Care Discharge Facility Name: home - DIAGNOSES Admission Diagnoses: (1) Neutropenic fever (2) Right lower lobe pneumonia (3) Acute metabolic encephalopathy (4) Acute hypoxemic respiratory failure (5) Small cell lung cancer (6) Hypothyroidism (7) Obstructive sleep apnea (8) hx of Non-STEMI (non-ST elevated myocardial infarction) (9) Chest pain Discharge Diagnoses with Status of Each Condition: (1) Neutropenic fever (2) Right lower lobe pneumonia (3) Acute metabolic encephalopathy (4) Acute hypoxemic respiratory failure (5) Small cell lung cancer (6) Hypothyroidism (7) Obstructive sleep apnea (8) hx of Non-STEMI (non-ST elevated myocardial infarction) (9) Chest pain (10) shortness of breath (11) dizziness - HPI History of Present Illness: refer from Ms. Carvalho's HPI on 11/07/18 as the following: Rhina Brady is a 78-year old female with a past medical history of hypertension, hyperlipidemia, myocardial infarction, COPD, FLAVIA- on CPAP, small cell lung cancer, hypothyroidism, osteoarthritis, depression and anxiety. The patient is currently under the care of the [facility]- oncology. She last had a treatment 4 days ago and has a established right upper chest port. Y esterday she developed increased shortness of breath, weakness, and rigors. She reported fevers, chills, loss of appetite, and slight nausea on my exam at home. She developed chest pain early this morning, so came to the ED after taking oxycodone with no improvement. Labs show a low WBC count of 1.2, H/H of 11.4/33.9, elevated MCV of 101.6, platelets of 229, unknown neutrophil count, sodium of 133, potassium of 4.0, chloride 100, BUN 19, creatinine of 0.8, GFR of 70, glucose of 120, troponin of 0.04, bili 0.4, lactic acid 1.0, BNP 53, a urine sample that appears non-infectious. Imaging of a chest CT shows no pulmonary emboli, right upper & lower lobe infiltrates, increased mediastinal adenopathy. Vital signs show no fever with a temp of 36.2, heart rate 91, RR 26, B/P 151/81, oxygen 88% on 4L nasal cannula that was changed to a mask. On her initial exam, she has signs of poor perfusion on all extremities with early mottling, silvana cheeks, is minimally conversational, and is requiring high amounts of oxygen at 12L venti-mask, speaking in few word sentences. Her daughter is at her bedside. She will be admitted for worrisome evidence of possible a progression to septic shock given her neutropenia and clinical exam findings. - HOSPITAL COURSE Hospital Course: 1) Neutropenic fever resolved. WBC is 7.2 now. no fever. pt is prescribed Ceftin to continue the treatment course. (2) Right lower lobe pneumonia pt has 93% sat on 2 liter of O2 now. pt took 3 liter of O2 at home. pt's WBC is normal now. CXR reveals improved. pt is prescribed Ceftin to finish the treatment course (3) Acute metabolic encephalopathy resolved, mental status as her baseline now. (4) Acute hypoxemic respiratory failure resolved.pt has 93% sat on 2 liter of O2 now. pt took 3 liter of O2 at home. (5) Small cell lung cancer stable, followup her oncologist (6) Hypothyroidism stable (7) Obstructive sleep apnea stable (8) hx of Non-STEMI (non-ST elevated myocardial infarction) stable, troponin <0.04 (9) Chest pain right chest pain is resolved (10) shortness of breath stable. CTA reveals no PE. pt has ongoing small cell lung cancer (11) dizziness improved. pt has HGB 9.4 now, The reduction of HGB could be caused by recent chemotherapy, continue followup PCP and her oncologist to manage. - ALLERGIES Allergies/Adverse Reactions: Allergies Allergy/AdvReac Type Severity Reaction Status Date / Time No Known Drug Allergies Allergy Verified 11/07/18 15:47 - MEDICATIONS Home Medications: Ambulatory Orders Medication Instructions Recorded Confirmed Calcium Carbonate/Vitamin D3 1 tab PO DAILY 07/04/16 11/07/18 [Calcium 600-Vit D3 400 Tablet] Levothyroxine Sodium 75 mcg PO DAILY 07/04/16 11/07/18 Albuterol Sulf [Ventolin Hfa 2 puffs INH Q4HR PRN 11/01/18 11/07/18 Inhaler] Clopidogrel [Plavix] 75 mg PO DAILY 11/01/18 11/07/18 Losartan [Cozaar] 25 mg PO DAILY 11/01/18 11/07/18 Sertraline [Zoloft] 50 mg PO DAILY 11/01/18 11/07/18 Dexamethasone [Decadron] 4 mg PO [id number] 11/07/18 11/07/18 Famotidine 20 mg PO DAILY PRN 11/07/18 11/07/18 Fluticasone/Salmeterol [Advair Hfa 1 puffs INH BID 11/07/18 11/07/18 115-21 Mcg Inhaler] Rosuvastatin Calcium 20 mg PO DAILY 11/07/18 11/07/18 Vitamin B Complex 1 tab PO DAILY 11/07/18 11/07/18 HYDROcod/ACETAM 5/325 [[place] 5/325] 1 tab PO Q4HR PRN #20 tablet 11/11/18 cefUROXime axetil [Ceftin] 500 mg PO Q12H #24 tablet 11/11/18 - PHYSICAL EXAM AT DISCHARGE General Appearance: positive: No acute distress, Alert. negative: Lethargic Eyes Bilateral: positive: Normal inspection, PERRL, No lid inflammation, Conjunctivae nml ENT: positive: ENT inspection nml, Pharynx nml, No signs of dehydration. negative: Purulent nasal drainage, Pharyngeal erythema, Oral lesions Neck: positive: Nml inspection, Thyroid nml, No JVD, Trachea midline. negative: Thyromegaly, Lymphadenopathy (R), Lymphadenopathy (L), Stiff neck, Swelling/bruising, Tracheal deviation Respiratory: positive: Chest non-tender, No respiratory distress. negative: Wheezes, Rales Cardiovascular: positive: Regular rate & rhythm, No murmur, No gallop. negative: Irregularly irregular, Extrasystoles, Tachycardia, Bradycardia, JVD present, Systolic murmur, Diastolic murmur Peripheral Pulses: positive: 2+ Abdomen: positive: Non-tender, No organomegaly, Nml bowel sounds, No distention. negative: Tenderness, Guarding, Rebound Back: positive: Nml inspection. negative: CVA tenderness (R), CVA tenderness (L) Skin: positive: Color nml, No rash, Warm, Dry. negative: Cyanosis, Diaphoresis, Pallor Extremities: positive: Non-tender, Nml appearance. negative: Calf tenderness, Joint swelling, Francisco's sign/cords Neurologic/Psychiatric: positive: Oriented x3, Sensation nml, Mood/affect nml. negative: Weakness, Sensory loss, Facial droop, Slurred/abnml speech, Depressed mood/affect - LABS Result Diagrams: 11/11/18 06:15 11/11/18 06:15 - SEPSIS Current Stage of Sepsis: Sepsis Possible source of Sepsis: Pulmonary Sepsis Criteria: Recorded Heart Rate greater than 90 bpm, Recorded Respiratory Rate greater than 20, Respiratory: Increasing oxygen requirements, WBC count greater than 12,000 or less than 4000, NEONATAL NURSE PRACTITIONER: altered consciousness (unrelated to primary neuro pathology) - FOLLOW UP Follow Up: you may followup your PCP in one week, followup your oncologist as your schedule. you were found to have pneumonia, Ceftin is prescribed to continue the treatment course. Should your symptoms return or worsen, you may present ER, call 911 or call your PCP for help. - TIME SPENT Time Spent in Discharge (Minutes): 55
[2018-11-11] MEDS ORDERED: SERTRALINE 50 MG TABLET PO SCH (21:00)
== END 2018-11-11 17:33 | disposition home or self-care (01) | DRG 871 ==
LOC: ED 15:39 → MS2 18:07
PROVIDERS: ADMIT Nurse Practitioner; ATTEND Nurse Practitioner Gerontology
DX: J18.9 Pneumonia, unspecified organism (principal); R09.02 Hypoxemia; C34.90 Malignant neoplasm of unspecified part of unspecified bronchus or lung; E78.00 Pure hypercholesterolemia, unspecified; A41.9 Sepsis, unspecified organism; J18.1 Lobar pneumonia, unspecified organism; G93.41 Metabolic encephalopathy; J96.01 Acute respiratory failure with hypoxia; D70.3 Neutropenia due to infection; R50.81 Fever presenting with conditions classified elsewhere; G47.33 Obstructive sleep apnea (adult) (pediatric); R07.2 Precordial pain; R42 Dizziness and giddiness; E03.9 Hypothyroidism, unspecified; I10 Essential (primary) hypertension; E78.5 Hyperlipidemia, unspecified; F32.9 Major depressive disorder, single episode, unspecified; F41.9 Anxiety disorder, unspecified; I25.10 Atherosclerotic heart disease of native coronary artery without angina pectoris; G62.9 Polyneuropathy, unspecified; K21.9 Gastro-esophageal reflux disease without esophagitis; J32.9 Chronic sinusitis, unspecified; R30.0 Dysuria; R35.1 Nocturia; H91.90 Unspecified hearing loss, unspecified ear; M19.90 Unspecified osteoarthritis, unspecified site; Z95.5 Presence of coronary angioplasty implant and graft; Z79.51 Long term (current) use of inhaled steroids; Z79.02 Long term (current) use of antithrombotics/antiplatelets; Z79.52 Long term (current) use of systemic steroids; Z79.899 Other long term (current) drug therapy; I25.2 Old myocardial infarction; Z87.891 Personal history of nicotine dependence
CPT/HCPCS: 36415; 51701; 70450; 71045; 71275; 80048; 80053; 80069; 80202; 81003; 82607; 82728; 83540; 83605; 83615; 83690; 83735; 83880; 84443; 84466; 84484; 85025; 85044; 85610; 86140; 87040; 87275; 87276; 93005; 93306; 94640; 96361; 96365; 99284; A9270; J1650; J3370; Q9967; 81001; 87086

== ENCOUNTER 2019-09-14 14:52 | Outpatient (CLI) | payer MEDICARE, OTHER | END 2019-09-14 14:53 | disposition critical access hospital (66) | LOC: EMS 14:52 | PROVIDERS: ATTEND Surgery | DX: R55 Syncope and collapse (principal); R53.1 Weakness | CPT/HCPCS: A0425; A0427; A0428 ==

== ENCOUNTER 2019-09-14 15:04 | Emergency (ER) | payer MEDICARE, OTHER ==
[2019-09-14] MEDS ORDERED: SODIUM CHLORIDE 0.9% 1,000 ML IV ONE (15:15)
--- NOTE | 2019-09-14 15:17 | ED Physician Documentation ---
History of Present Illness - Stated complaint Stated Complaint: SYNCOPE - History obtained from History obtained from: Patient, Family, EMS - History of Present Illness Timing: Today Pain level max: 0 Pain level now: 0 - Additonal information Additional information: 79-year-old female was released from the [facility] today to go home and be on hospice. She is normally on 3 L of home O2. She got home today with her family and had a syncopal event. Brought in for evaluation. Review of Systems Unable to obtain: Other (minimally responsive) Skin: denies: Rash Musculoskeletal: denies: Neck pain, Back pain Neurologic: denies: Headache PD PAST MEDICAL HISTORY - Past Medical History Cardiovascular: Hypertension, High cholesterol, Coronary artery disease, VT, Murmur Respiratory: COPD, Pneumonia, Shortness of breath, Sleep apnea, CPAP use, Other Neuro: Headaches, Peripheral neuropathy Endocrine/Autoimmune: HyPOthyroidism GI: GERD YARN HAULER: None : None HEENT: None, Chronic sinusitis, Chronic hearing loss Psych: Depression, Anxiety Musculoskeletal: Osteoarthritis Derm: None - Past Surgical History Past Surgical History: Yes General: Colonoscopy Ortho: Other Cardiovascular: Coronary stent, Cardiac catheterization, Angioplasty - Present Medications Home Medications: Ambulatory Orders Medication Instructions Recorded Confirmed Calcium Carbonate/Vitamin D3 1 tab PO DAILY 07/04/16 11/07/18 [Calcium 600-Vit D3 400 Tablet] Levothyroxine Sodium 75 mcg PO DAILY 07/04/16 11/07/18 Albuterol Sulf [Ventolin Hfa 2 puffs INH Q4HR PRN 11/01/18 11/07/18 Inhaler] Clopidogrel [Plavix] 75 mg PO DAILY 11/01/18 11/07/18 Losartan [Cozaar] 25 mg PO DAILY 11/01/18 11/07/18 Sertraline [Zoloft] 50 mg PO DAILY 11/01/18 11/07/18 Famotidine 20 mg PO DAILY PRN 11/07/18 11/07/18 Fluticasone/Salmeterol [Advair Hfa 1 puffs INH BID 11/07/18 11/07/18 115-21 Mcg Inhaler] Rosuvastatin Calcium 20 mg PO DAILY 11/07/18 11/07/18 Vitamin B Complex 1 tab PO DAILY 11/07/18 11/07/18 dexAMETHasone [Decadron] 4 mg PO [id number] 11/07/18 11/07/18 HYDROcod/ACETAM 5/325 [[place] 5/325] 1 tab PO Q4HR PRN #20 tablet 11/11/18 cefUROXime axetiL [Ceftin] 500 mg PO Q12H #24 tablet 11/11/18 - Allergies Allergies/Adverse Reactions: Allergies Allergy/AdvReac Type Severity Reaction Status Date / Time No Known Drug Allergies Allergy Verified 11/07/18 15:47 - Social History Does the pt smoke?: No Smoking Status: Never smoker Does the pt drink ETOH?: Yes Does the pt have substance abuse?: No - Immunizations Immunizations are current?: Yes - POLST Patient has POLST: No POLST Status: Full Code PD ED PE NORMAL - Vitals Vital signs reviewed: Yes - General General: Other (Open mouth agonal breathing) - HEENT HEENT: Other (Pale, dry lips) - Neck Neck: Supple, no meningeal sign - Cardiac Cardiac: RRR - Respiratory Respiratory: Other (mild rhonchi B) - Abdomen Abdomen: Soft, Non tender - Derm Derm: Other (cool, dry) - Extremities Extremities: No calf tenderness / cord - Neuro Neuro: Other (drowsy) Eye Opening: Spontaneous Motor: Localizes to Pain Verbal: Inappropriate GCS Score: 12 Results - Vitals Vitals: Vital Signs - 24 hr 09/14/19 09/14/19 09/14/19 15:15 16:02 16:06 Temperature 36.7 C Heart Rate 81 91 82 Respiratory 12 20 14 Rate Blood Pressure 80/42 L 110/65 111/55 L O2 Saturation 99 100 98 Oxygen O2 Source [With Activity] Room air O2 Source [Without Activity] Room air O2 Source Non-rebreather mask Oxygen Flow Rate 15 - Labs Labs: Laboratory Tests 09/14/19 09/14/19 15:27 15:27 WBC 4.3 L RBC 2.57 L Hgb 9.2 L Hct 28.0 L MCV 108.9 H MCH 35.8 H MCHC 32.9 Plt Count 143 MPV 10.7 Manual Slide Review Indicated Sodium 134 L Potassium 3.3 L Chloride 104 Carbon Dioxide 25 Anion Gap 5.0 L BUN 13 Creatinine 0.9 Estimated GFR (MDRD) 61 L Glucose 108 H Calcium 11.9 H Total Bilirubin 0.6 AST 14 ALT < 10 L Alkaline Phosphatase 75 Total Protein 4.6 L Albumin 2.8 L Globulin 1.8 L Albumin/Globulin Ratio 1.6 Lipase 15 L - Rads (name of study) cxr Radiology: Prelim report reviewed, EMP read contemporaneously, See rad report (Increased interstitial markings and peribronchial cuffing are nonspecific but can be seen in the setting of reactive airways disease, bronchitis or viral infection. ) PD MEDICAL DECISION MAKING - ED course Complexity details: reviewed results, considered differential, d/w family ED course: 79-year-old female with significant hypoxia, 50% on 3 L when she arrived to the emergency department. She was immediately placed on a nonrebreather and IV fluids given. She remained with agonal respirations and pale cool skin. I discussed the case with her daughter Letitia who came to the emergency department. Patient appears to be in her final stage of life. The patient would prefer to be at home with her family and surrounded by her daughters. I think this is appropriate. Patient is a DNR. Hospice will meet her at home. She will be maintained on 100% nonrebreather. This document was made in part using voice recognition software. While efforts are made to proofread this document, sound alike and grammatical errors may occur. Departure - Departure Disposition: 01 Home, Self Care Clinical Impression: Hospice care patient, Hypoxia Hypotension Qualifiers: Hypotension type: unspecified hypotension type Qualified Code(s): I95.9 - Hypotension, unspecified Condition: Poor Follow-Up: Lucy Nick MD [Primary Care Provider] - Comments: hospce will meet you at home. Discharge Date/Time: 09/14/19 16:06
[2019-09-14 15:34] LABS: BASOPHILS % (AUTO) 0.9 %; EOSINOPHILS # (AUTO) 0.2 10^3/uL (0.0-0.7); EOSINOPHILS % (AUTO) 3.7 %; HGB - HEMOGLOBIN 9.2 g/dL (12.0-16.0); LYMPHOCYTES # (AUTO) 0.9 10^3/uL (1.5-3.5); LYMPHOCYTES % (AUTO) 20.5 %; MEAN CORPUSCULAR HEMOGLOBIN 35.8 pg (27.0-31.0); MEAN CORPUSCULAR HGB CONC 32.9 g/dL (32.0-36.0); MEAN CORPUSCULAR VOLUME 108.9 fL (81.0-99.0); MEAN PLATELET VOLUME 10.7 fL (7.9-10.8); MONOCYTES % (AUTO) 23.1 %; NEUTROPHILS # (AUTO) 2.2 10^3/uL (1.5-6.6); NEUTROPHILS % (AUTO) 51.1 %; PLT - PLATELET COUNT 143 10^3/uL (130-450); RED BLOOD COUNT 2.57 10^6/uL (4.20-5.40); WHITE BLOOD COUNT 4.3 x10^3/uL (4.8-10.8)
--- NOTE | 2019-09-14 15:49 | XRAY Report ---
Reason: hypoxia Procedure Date: 09/14/2019 Accession Number: [id number] / [id number] Procedure: XR - Chest 1 View X-Ray CPT Code: 21490 Final Report FULL RESULT: EXAM: CHEST RADIOGRAPHY EXAM DATE: 09/14/2019 03:35 PM. CLINICAL HISTORY: Hypoxia. COMPARISON: CHEST 1 VIEW 11/10/2018 12:54 PM. TECHNIQUE: 1 view. FINDINGS: Lungs/Pleura: Increased interstitial markings and peribronchial cuffing are nonspecific but can be seen in the setting of reactive airways disease, bronchitis or viral infection. No focal opacities evident. No pleural effusion. No pneumothorax. Mediastinum: Within exam limitations, the cardiomediastinal contour is normal. Other: Right sided Port-A-Cath redemonstrated. IMPRESSION: Increased interstitial markings and peribronchial cuffing are nonspecific but can be seen in the setting of reactive airways disease, bronchitis or viral infection. [facility]
[2019-09-14 15:51] LABS: ALBUMIN 2.8 g/dL (3.2-5.5); ALBUMIN/GLOBULIN RATIO 1.6 (1.0-2.2); ALKALINE PHOSPHATASE 75 IU/L (42-121); ALT ALANINE AMINOTRANSFERASE < 10 IU/L (10-60); AST ASPARTATE AMINOTRANSFERASE 14 IU/L (10-42); BILIRUBIN,TOTAL 0.6 mg/dL (0.2-1.0); BUN - BLOOD UREA NITROGEN 13 mg/dL (6-20); CALCIUM 11.9 mg/dL (8.5-10.3); CARBON DIOXIDE - CO2 25 mmol/L (21-32); CHLORIDE 104 mmol/L (101-111); CREATININE 0.9 mg/dL (0.4-1.0); GFR - MDRD 61 (>89); GLUCOSE 108 mg/dL (70-100); LIPASE 15 U/L (22-51); SODIUM 134 mmol/L (135-145); TOTAL PROTEIN 4.6 g/dL (6.7-8.2)
[2019-09-14 16:07] VITALS: BP 111/55
[2019-09-14 16:28] LABS: PLATELET ESTIMATE, MANUAL NORMAL (130-450,000) (NORMAL); PLATELET MORPHOLOGY NORMAL APPEARANCE (NORMAL)
== END 2019-09-14 16:06 | disposition home or self-care (01) ==
LOC: EDUNIT# → ED 15:04
DX: R09.02 Hypoxemia (principal); I95.9 Hypotension, unspecified; I10 Essential (primary) hypertension; Z66 Do not resuscitate
CPT/HCPCS: 36415; 71045; 80053; 83690; 85025; 93005; 99284; 99285

== ENCOUNTER 2019-09-14 16:08 | Outpatient (CLI) | payer MEDICARE, OTHER | END 2019-09-14 16:09 | disposition home or self-care (01) | LOC: EMS 16:08 | PROVIDERS: ATTEND Surgery | DX: R53.1 Weakness (principal) ==